=== PATIENT | male | born 1945 | race African-American/Black ===

== ENCOUNTER 2020-06-26 16:40 | Inpatient (IN) | payer MEDICARE ==
--- NOTE | 2020-06-26 19:50 | RAD ---
CHEST TWO VIEW: 06/26/20 HISTORY: Cough. COMPARISON: None. FINDINGS: Abnormal consolidative process in the right middle lobe and right lower lobe. Background lung hyperi nflation. No pneumothorax. Heart size is mildly enlarged. IMPRESSION: Right middle lobe and right lower lobe air space consolidation. This may reflect pneumonia although g iven likely comparisons, follow-up radiograph after treatment are recommended. POS: [facility]
[2020-06-26] MEDS ORDERED: Cefepime 2 GM VIAL ONE (20:54)
[2020-06-26] MEDS ORDERED: Vancomycin 1.5 GRAM/300 ML BAG 1.5 GM in Premix Bag 1 BAG IVPB SCH (21:00)
[2020-06-26] MEDS ORDERED: Albuterol 200 PUFF (6.7GM INHALER) ONE (21:17)
[2020-06-26 22:33] LABS: #Basophils 0.1 thou/uL (0.0-0.2); #Eosinphils 0.1 thou/uL (0.0-0.7); #Lymphocytes 1.1 thou/uL (1.20-3.40); #Monocytes 1.1 thou/uL (0.11-0.59); #Neutrophils 5.7 thou/uL (1.40-6.50); %Basophils 0.7 % (0.0-1.0); %Eosinophils 1.8 % (0.0-10.0); %Lymphocytes 13.4 % (21.0-51.0); Hemoglobin 10.7 g/dL (14.0-18.0); Mean Corpuscular HGB CONC 32.9 g/dL (32.0-36.0); Mean Corpuscular Hemoglobin 30.5 pg (27.0-31.0); Mean Corpuscular Volume 92.6 fL (78.0-98.0); Platelet Count 139 thou/uL (130-400); RBC Distribution Width 15.4 % (11.5-14.5); Red Blood Cell (RBC) Count 3.51 mill/uL (4.70-6.10); White Blood Cell (WBC) Count 8.1 thou/uL (4.8-10.8)
[2020-06-26 23:15] LABS: ALT (SGPT) 9 U/L (8-55); AST (SGOT) 16 U/L (5-34); Albumin 3.8 g/dL (3.4-4.8); Alkaline Phosphatase 69 U/L (40-110); Anion Gap 22 mmol/L (10-20); BUN (Urea Nitrogen) 41 mg/dL (8.4-25.7); Bilirubin, Total 0.9 mg/dL (0.2-1.2); Calc. Creatinine Clearance 0 mL/min (70-130); Carbon Dioxide 27 mmol/L (23-31); Chloride 95 mmol/L (98-107); Globulin 2.9 g/dL (2.4-3.5); Glucose 81 mg/dL (83-110); Potassium 4.3 mmol/L (3.5-5.1); Protein, Total 6.7 g/dL (5.8-8.1); Sodium 140 mmol/L (136-145)
[2020-06-26 23:38] LABS: CKMB 1.4 ng/mL (0-6.6)
[2020-06-26 23:47] LABS: SARS-CoV-2 NAA Rapid Test Not Detected (NotDetected)
[2020-06-27] MEDS ORDERED: Calcium Carbonate 500 MG ChewTAB PO PRN (00:42)
[2020-06-27] MEDS ORDERED: Senokot S 8.6-50 MG TAB PO PRN (00:42)
[2020-06-27] MEDS ORDERED: Ondansetron ODT 4 MG TAB PO PRN (00:42)
[2020-06-27] MEDS ORDERED: Ondansetron PF 4 MG/2 ML Vial IVP PRN (00:42)
[2020-06-27] MEDS ORDERED: Acetaminophen 325 MG TAB PO PRN (00:42)
--- NOTE | 2020-06-27 00:42 | PDOC.FPRHP ---
- History of Present Illness Chief Complaint: SOB History of Present Illness: Pt is a 75 yo M with a PMH of ESRD on dialysis T//Wed, diabetes, HTN, COPD, GERD, [place] who presents with SOB for the last week. Patient endorses associated congestion, wheezing, cough that is productive of increased white to green sputum. Denies fever. Is not prescribed home O2 but uses a family member's O2 at home on 2L. Denies any sick contacts. Endorses compliance with medications. Denies FRANCO, CP, vision changes, fever, chills, abdominal pain, nausea, vomiting. ED Course: Vanc, Cefepime, Proventil, Duoneb - Allergies/Adverse Reactions Allergies Allergy/AdvReac Type Severity Reaction Status Date / Time codeine Allergy Verified 06/27/20 06:21 - Home Medications Medication Instructions Recorded Confirmed Type Aspirin 325 mg PO DAILY 06/27/20 06/27/20 History Budesonide/Formoterol Fumarate 10.2 gm IH BID 06/27/20 06/27/20 History [Budesonide-Formoterol 160-4.5] Carvedilol 25 mg PO BID 06/27/20 06/27/20 History Cetirizine HCl [Zyrtec] 10 mg PO DAILY 06/27/20 06/27/20 History Famotidine [Acid Controller] 20 mg PO DAILY 06/27/20 06/27/20 History Mometasone/Formoterol 100/5 2 puff INH BID-RT 06/27/20 06/27/20 History [Dulera 100 Mcg/5 Mcg Inhaler] hydrALAZINE HCl [Hydralazine HCl] 50 mg PO BID 06/27/20 06/27/20 History - History PMHx: ESRD on dialysis T//Wed, diabetes, HTN, COPD, GERD, [place] PSHx: dialysis fistula placement FHx: non contributory Social: 60 year pack year history smoking, marijuana as a teen, no alcohol - Review of Systems General: reports: fatigue. denies: fever/chills Eyes: reports: vision changes Respiratory: reports: cough, congestion, shortness of breath, exercise intolerance Cardiovascular: denies: chest pain, palpitation, edema Gastrointestinal: denies: nausea, vomiting, diarrhea, abdominal pain Genitourinary: denies: incontinence Skin: denies: rashes Neurological: denies: seizure - Vital signs BP: 204/85 HR: 96 RR: 22 Tmax: 99 Pox: 86% on RA, 98% on 3L Wt: 82kg - Physical Exam Constitutional: NAD, awake, alert and oriented -Constitutional: on nasal cannula HEENT: normocephalic and atraumatic, EOMI, grossly normal vision, grossly normal hearing Neck: no JVD Heart: RRR, normal S1/S2, pulses present, no edema -Lungs: wheezing appreciated on exam bilaterally in all lung gonzales Abdomen: soft, non-tender, bowel sounds present Musculoskeletal: normal structure, normal tone, ROM grossly normal Neurological: no focal deficit, CN II-XII intact Skin: no rash/lesions Psychiatric: normal mood and affect, good judgment and insight, intact recent and remote memory FMR H&P: Results - Labs Result Diagrams: 06/27/20 04:37 06/27/20 04:30 Lab results: WBC 8.1 thou/uL (4.8-10.8) 06/26/20 21:30 Hgb 10.7 g/dL (14.0-18.0) L 06/26/20 21:30 Hct 32.5 % (42.0-52.0) L 06/26/20 21:30 MCV 92.6 fL (78.0-98.0) 06/26/20 21:30 Plt Count 139 thou/uL (130-400) 06/26/20 21:30 Neutrophils % 71.0 % (42.0-75.0) 06/26/20 21:30 Sodium 140 mmol/L (136-145) 06/26/20 21:30 Potassium 4.3 mmol/L (3.5-5.1) 06/26/20 21:30 Chloride 95 mmol/L (98-107) L 06/26/20 21:30 Carbon Dioxide 27 mmol/L (23-31) 06/26/20 21:30 BUN 41 mg/dL (8.4-25.7) H 06/26/20 21:30 Creatinine 10.80 mg/dL (0.7-1.3) H 06/26/20 21:30 Glucose 81 mg/dL (83-110) L 06/26/20 21:30 Calcium 9.0 mg/dL (7.8-10.44) 06/26/20 21:30 Total Bilirubin 0.9 mg/dL (0.2-1.2) 06/26/20 21:30 AST 16 U/L (5-34) 06/26/20 21:30 ALT 9 U/L (8-55) 06/26/20 21:30 Alkaline Phosphatase 69 U/L (40-110) 06/26/20 21:30 CK-MB (CK-2) 1.4 ng/mL (0-6.6) 06/26/20 21:30 B-Natriuretic Peptide 2538.1 pg/mL (0-100) H 06/26/20 21:30 Serum Total Protein 6.7 g/dL (5.8-8.1) 06/26/20 21: Albumin 3.8 g/dL (3.4-4.8) 06/26/20 21:30 FMR H&P: A/P - Plan Acute hypoxic respiratory failure 2/2 PNA and COPD exacerbation -history of COPD, SOB with increased oxygen requirement, increased cough with sputum production -CXR: right middle and lower lobe consolidation -s/p antibiotics in ED, continue Rocephin and Azithromycin -on 3L of O2, will put in for CM consult as patient will likely need home O2 since he has been using a family member's -prednisone 40mg daily for 5 days (06/27) -DuoNebs PRN and ADRIEN -COVID negative Hypertensive urgency -continue home meds -Hydralazine on PRN Elevated Trop -Trop .122>.138 -denies CP -continue to trend Elevated BNP -BNP 2538 on admission -no signs of fluid overload on exam -continue to monitor ESRD on dialysis T//Wed -Dr. Sousa is patient's regular lidar scientist -Neprhology consulted to continue normal dialylsis schedule Diabetes -aware not on home meds -SSI -ACCU checks HTN -aware, see plan for hypertensive urgency GERD -aware, continue home meds [place]FR[place] -aware, ordered CPAP at night Anemia -likely 2/2 renal failure Dispo: admit to tele inpatient Fluids: KVO Diet: HH incl low sodium DVT ppx: Heparin GI Ppx: home pantoprazole PCP: GEM FMR H&P: Upper Level - Plan Date/Time: 06/27/20 0042 Pete Logan PGY3, have evaluated this patient and agree with findings/plan as outlined by internal combustion engineer resident. Pertinent changes/additions are listed here. 75-year-old male with past medical history of end-stage renal disease on hemodialysis Wednesday. Presents to the ER with several days of shortness of breath, denies fevers chills chest pain or palpitations. He has notable history of COPD. He denies any transforming factors. On exam patient is hypertensive 204/85, tachypneic 22 breaths/min, hypoxic on room air but satting 98% on 3 L. Heart has regular rate and rhythm with no murmurs, lungs have bilateral expiratory wheezing but moderately good air movement, the patient does not appear to be in any distress and is able to finish sentences without taking a breath. No JVD no lower extremity edema. A/P Hypoxic respiratory failure secondary to community-acquired pneumonia and COPD exacerbation Chest x-ray reveals right middle and lower lobe consolidation, examination significant for wheezing. I am mindful of BNP of 2538 however he is euvolemic on exam. We will treat with azithromycin and Rocephin for the pneumonia, follow-up blood cultures. Treat with prednisone x5 days and duo nebs for COPD exacerbation. End-stage renal disease- Dr. Sousa consult order put in from emergency room. He is due for dialysis tomorrow Diabetes mellitus Sliding scale insulin, Accu-Cheks, home medications HTN, GERD, [place], Spinal stenosis stable, continue home meds CODE: FULL dispo: inpatient, expect more than 2 midnights Addendum - Attending - Attending Attestation Date/Time: 06/27/20 1051 I personally evaluated the patient and discussed the management with Dr. Waters/Erasmo. I agree with the History, Examination, Assessment and Plan documented above with any addition or exceptions noted below. Patient here with productive cough, worsening respiratory complaints and new diagnosis of hypoxia, though he reports being on O2 for years unofficially. CXR concerning for pneumonia, labs reassuring. Suspect mostly COPD exacerbation. Continue IV abx, neb treatments, O2 support, steroids. Further mgmt pending clin ical course.
[2020-06-27] MEDS ORDERED: Dextrose 50% Abboject 50 ML SYRINGE SLOW IVP PRN (01:27)
[2020-06-27] MEDS ORDERED: HumaLOG 300 UNITS/3 ML VIAL SC PRN (01:27)
[2020-06-27] MEDS ORDERED: Dextrose 5% in Water 1,000 ML IV PRN (01:27)
[2020-06-27] MEDS ORDERED: Azithromycin 500 MG in Sodium Chloride 0.9% 250 ML 250 ML IVPB SCH ×2 (02:00→09:00)
[2020-06-27] MEDS ORDERED: cefTRIAXone\\ROCEPHIN 1 GM VIAL ONE (02:11)
[2020-06-27] MEDS: cefTRIAXone\\ROCEPHIN 1 GM in Sodium Chloride 0.9% 100 ML IVPB SCH (03:12)
[2020-06-27 03:28] LABS: Troponin I 0.138 ng/mL (< 0.028)
[2020-06-27] MEDS ORDERED: hydrALAZINE 20 MG/ML VIAL ONE (05:23)
[2020-06-27] MEDS: hydrALAZINE 20 MG/ML VIAL SLOW IVP PRN ×2 (05:31→16:24)
[2020-06-27 05:33] LABS: Troponin I 0.151 ng/mL (< 0.028)
[2020-06-27 07:37] LABS: ALT (SGPT) 7 U/L (8-55); AST (SGOT) 12 U/L (5-34); Albumin 3.7 g/dL (3.4-4.8); Alkaline Phosphatase 70 U/L (40-110); Anion Gap 24 mmol/L (10-20); BUN (Urea Nitrogen) 44 mg/dL (8.4-25.7); Bilirubin, Total 0.8 mg/dL (0.2-1.2); Calc. Creatinine Clearance 6 mL/min (70-130); Calcium 9.2 mg/dL (7.8-10.44); Carbon Dioxide 24 mmol/L (23-31); Chloride 95 mmol/L (98-107); Globulin 3.2 g/dL (2.4-3.5); Glucose 71 mg/dL (83-110); Potassium 4.1 mmol/L (3.5-5.1); Protein, Total 6.9 g/dL (5.8-8.1); Sodium 139 mmol/L (136-145)
[2020-06-27 07:49] LABS: #Eosinphils 0.1 thou/uL (0.0-0.7); #Monocytes 1.2 thou/uL (0.11-0.59); %Basophils 0.2 % (0.0-1.0); %Lymphocytes 10.6 % (21.0-51.0); %Neutrophils 75.3 % (42.0-75.0); Hemoglobin 11.3 g/dL (14.0-18.0); Mean Corpuscular HGB CONC 31.3 g/dL (32.0-36.0); Mean Corpuscular Volume 92.8 fL (78.0-98.0); Mean Platelet Volume 10.5 fL (7.4-10.4); Platelet Count 136 thou/uL (130-400); RBC Distribution Width 15.4 % (11.5-14.5); Red Blood Cell (RBC) Count 3.89 mill/uL (4.70-6.10); White Blood Cell (WBC) Count 9.3 thou/uL (4.8-10.8)
[2020-06-27] MEDS ORDERED: Albuterol Sulfate 2.5 mg/3 ml Neb NEB PRN (08:44)
[2020-06-27] MEDS: predniSONE 20 MG TAB PO SCH (08:46)
[2020-06-27] MEDS: Carvedilol 25 MG TAB PO SCH ×2 (08:46→22:41)
[2020-06-27] MEDS: Aspirin 325 MG TAB PO SCH (08:46)
[2020-06-27] MEDS: Loratadine 10 MG TAB PO SCH (08:46)
[2020-06-27] MEDS: Famotidine 20 MG TAB PO SCH (08:46)
[2020-06-27] MEDS: Heparin 5,000 UNITS/ML VIAL SC SCH ×3 (08:46→22:42)
[2020-06-27] MEDS: hydrALAZINE 25 MG TAB PO SCH ×2 (08:46→22:42)
[2020-06-27 09:35] LABS: HBSAg Index 0.23 S/CO (0-0.99); Hep B Surf Ag Non-Reactive S/CO (NonReactive)
[2020-06-27] MEDS: HumaLOG 300 UNITS/3 ML VIAL SC PRN (11:12)
--- NOTE | 2020-06-27 12:22 | CON ---
DATE OF CONSULTATION: 06/27/2020 CONSULTING PHYSICIAN: REASON FOR CONSULTATION: End-stage renal disease evaluation and care. REASON FOR ADMISSION: Shortness of breath. HISTORY OF PRESENT ILLNESS: This is a 75-year-old male with history of end-stage renal disease, on hemodialysis TTS, diabetes, hypertension, COPD, who came to the hospital with shortness of breath, was found to have pneumonia and to be evaluated. The patient gets dialysis on Wednesday, , and Wednesday and due for dialysis today. Nephrology consulted. The patient was treated with Zithromax as outpatient, but his oxygen level dropped and started having more short of breath. He was also having white to green sputum. PAST MEDICAL HISTORY: Positive for end-stage renal disease, type 2 diabetes, hypertension, COPD, obstructive sleep apnea. PAST SURGICAL HISTORY: Dialysis fistula placement. HOME MEDICATIONS: Reviewed. ALLERGIES: TO CODEINE. SOCIAL HISTORY: History of smoking and marijuana use. No alcohol use. FAMILY HISTORY: No history of kidney disease. REVIEW OF SYSTEMS: CONSTITUTIONAL: Negative for weight loss or gain, ability to conduct usual activities. SKIN: Negative for rash, itching. EYES: Negative for double vision, pain. ENT/MOUTH: Negative for nose bleeding, neck stiffness, pain, tenderness. CARDIOVASCULAR: Negative for palpitations, dyspnea on exertion, orthopnea. RESPIRATORY: Negative for shortness of breath, wheezing, cough, hemoptysis, fever or night sweats. GASTROINTESTINAL: Negative for poor appetite, abdominal pain, heartburn, nausea, vomiting, constipation, or diarrhea. GENITOURINARY: Negative for urgency, frequency, dysuria, nocturia. MUSCULOSKELETAL: Negative for pain, swelling. NEUROLOGIC/PSYCHIATRIC: Negative for anxiety, depression. ALLERGY/IMMUNOLOGIC: Negative for skin rash, bleeding tendency. PHYSICAL EXAMINATION: GENERAL: Reveals a well-built male, in no apparent distress. VITAL SIGNS: Temperature 98.1, pulse 88, respiratory rate 16, and blood pressure 160/73. HEENT: Atraumatic, normocephalic. Oral mucosa moist. NECK: Supple. CV: S1 and S2. Rate and rhythm are regular. RESPIRATORY: Clear. GASTROINTESTINAL: Abdomen is soft. MUSCULOSKELETAL: No tenderness. No edema. DERMATOLOGIC: No skin rash. NEUROLOGIC: Alert and awake. PSYCHIATRIC: Mood and affect normal. LABORATORY DATA: Hemoglobin is 10.7. Potassium 4.1, BUN is 44, and creatinine is 7.3. ASSESSMENT AND PLAN: 1. End-stage renal disease. Plan to have dialysis today. 2. Edema. 3. Hypertension. 4. Anemia of chronic disease. We will have dialysis and titrate blood pressure medicines. Remove fluid dialysis as tolerated. Continue antibiotics for pneumonia. We will follow. Thank you for the consult. Job ID: [id number]
[2020-06-27] MEDS ORDERED: Labetalol HCl 100 MG/20 ML VIAL SLOW IVP PRN (18:00)
[2020-06-28] MEDS: hydrALAZINE 25 MG TAB PO SCH ×3 (00:59→20:54)
[2020-06-28] MEDS: Carvedilol 25 MG TAB PO SCH ×3 (00:59→20:54)
[2020-06-28] MEDS: Heparin 5,000 UNITS/ML VIAL SC SCH ×4 (01:00→21:10)
[2020-06-28] MEDS ORDERED: Ziprasidone 20 MG VIAL IM ONE (01:30)
--- NOTE | 2020-06-28 01:30 | PDOC.BPN ---
- Brief Progress Note Called to bedside by nurse with Dr. Zimmerman for increasing agitation and delirium. Patient refusing all meds and ACCU checks. Ripped out his IV access. He thinks he is in detention. Trying to get out of bed, bed alarm going off upon arrival to patient's room. On questioning, he is feeling well, much better than admission. A&Ox3, but starts to hallucinate. Satting 99% on RA. NAD. His SBP is 230. Put in order for Farhana and asked nurse to re-establish IV access to give BP meds. Will re evaluate after administration of Geodon.
[2020-06-28] MEDS ORDERED: Ziprasidone 20 MG VIAL IM PRN (03:49)
[2020-06-28] MEDS ORDERED: Sterile Water 10 ML VIAL FS PRN (04:00)
[2020-06-28] MEDS: cefTRIAXone\\ROCEPHIN 1 GM in Sodium Chloride 0.9% 100 ML IVPB SCH (05:35)
--- NOTE | 2020-06-28 06:08 | PDOC.FM ---
- Subjective Subjective: Overnight team got a call that patient was agitated and delirious, pulled out IV and thought he was in fpc, at bedside patient was AxO x 3 with periods of hallucinations, SBP 230, O2 sat 99 on RA. Given juan miguel with instructions for the nurse to reestablish IV access and give patient his bp meds. When I saw patient, he was resting comfortably in bed. Denied any pain, trouble breathing, abdominal pain. When asked where he was, he said that he was at the [facility] pit. - Objective MAR Reviewed: Yes Vital Signs & Weight: Vital Signs (12 hours) Temp Pulse Resp BP Pulse Ox 06/28/20 00:59 86 06/27/20 21:37 94 L 06/27/20 19:28 98.0 F 86 16 171/76 H 94 L Weight Weight 78.109 kg I&O: 06/26/20 06/27/20 06/28/20 06:59 06:59 06:59 Intake Total 600 Output Total 3100 Balance -2500 Result Diagrams: 06/27/20 04:37 06/27/20 04:30 Phys Exam - Physical Examination Oriented to name only HEENT: PERRLA, moist MMs expiratory wheezing throughout Cardiovascular: RRR, no significant murmur Gastrointestinal: soft, non-tender, positive bowel sounds Musculoskeletal: no edema Neurological: moves all 4 limbs Skin: no rash Dx/Plan - Plan Plan: Acute hypoxic respiratory failure 2/2 PNA and COPD exacerbation -history of COPD, SOB with increased oxygen requirement, increased cough with sputum production -CXR: right middle and lower lobe consolidation -s/p antibiotics in ED, continue Rocephin and Azithromycin -pending procal, yesterday 0.78 -94 on RA -prednisone 40mg daily for 5 days (06/27) -DuoNebs flores, albuterol prn -COVID negative Hypertensive urgency -continue home meds -Hydralazine and labetalol prn -Nephrology - Dr. Sousa consulted, plans on titrating bp meds, appreciate recs Elevated Trop -Trop .122>.138>.151>.140 -denies CP -continue to monitor on tele Elevated BNP -BNP 2538 on admission -no signs of fluid overload on exam -continue to monitor, fluid restriction ESRD on dialysis T//Sat -Dr. Sousa is patient's regular vehicle upholsterer -Neprhology consulted - Dr. Sousa, dialysis 06/27, appreciate recs Diabetes -aware not on home meds -SSI -ACCU checks HTN -aware, see plan for hypertensive urgency GERD -aware, continue home meds [place] -aware, ordered CPAP at night Anemia -likely 2/2 renal failure Dispo: admit to tele inpatient Fluids: KVO Diet: HH incl low sodium DVT ppx: Heparin GI Ppx: home pantoprazole PCP: [facility]EM Addendum - Attending - Attending Attestation Date/Time: 06/28/20 3520 I personally evaluated the patient and discussed the management with Dr. Cabezas. I agree with the History, Examination, Assessment and Plan documented above with any addition or exceptions noted below. Patient stable. Not requiring O2. He had issues with delirium overnight, will attempt reorientation and sync of sleep/wake cycle today. Continue treatment for his primarily COPD exacerbation.
[2020-06-28 06:41] VITALS: BMI 24.7
[2020-06-28] MEDS ORDERED: Lorazepam 0.5 MG TAB PO SCH (07:00)
[2020-06-28] MEDS: Loratadine 10 MG TAB PO SCH (09:04)
[2020-06-28] MEDS: Famotidine 20 MG TAB PO SCH (09:04)
[2020-06-28] MEDS: Azithromycin 250 MG TAB PO SCH (09:05)
[2020-06-28] MEDS: Aspirin 325 MG TAB PO SCH (09:05)
[2020-06-28] MEDS: predniSONE 20 MG TAB PO SCH (09:05)
[2020-06-28] MEDS ORDERED: Amlodipine 10 MG TAB PO SCH (13:00)
[2020-06-28] MEDS: HumaLOG 300 UNITS/3 ML VIAL SC PRN (17:34)
--- NOTE | 2020-06-28 18:05 | PRG ---
DATE OF SERVICE: 06/28/2020 SUBJECTIVE: Patient was seen and examined at bedside and overnight events noted. Patient denies any shortness of breath or chest pain or palpitation. No history of nausea or vomiting or diarrhea or fever or chills or cramps. OBJECTIVE: GENERAL: This is well-built male, in no apparent distress. VITAL SIGNS: Temperature 96.7. Heart Rate 64. Respiratory rate 18. Blood pressure 194/81. HEENT: Atraumatic, normocephalic. Oral mucosa is moist. NECK: Supple. CARDIOVASCULAR: S1, S2 heard. Rate and rhythm regular. RESPIRATORY: Clear to auscultation. GASTROINTESTINAL: Abdomen is soft. MUSCULOSKELETAL: No tenderness. No edema. DERMATOLOGIC: No skin rash. NEUROLOGIC: Alert and awake and oriented x3. No focal neurologic deficits. Moving all the extremities. PSYCHIATRIC: Mood and affect normal. LABORATORY DATA: Not done today. ASSESSMENT AND PLAN: 1. End-stage renal disease. Continue dialysis Wednesday, , and Wednesday as tolerated. 2. Edema, we will remove fluid. 3. Hypertension. 4. Anemia of chronic disease. Continue on dialysis Wednesday, , and Wednesday as tolerated. Job ID: [id number]
[2020-06-28 18:21] LABS: #Lymphocytes 0.7 thou/uL (1.20-3.40); #Monocytes 0.2 thou/uL (0.11-0.59); #Neutrophils 7.5 thou/uL (1.40-6.50); %Basophils 0.2 % (0.0-1.0); %Eosinophils 0.1 % (0.0-10.0); %Lymphocytes 8.2 % (21.0-51.0); %Monocytes 2.2 % (0.0-10.0); %Neutrophils 89.2 % (42.0-75.0); Hemoglobin 11.1 g/dL (14.0-18.0); Mean Corpuscular HGB CONC 31.4 g/dL (32.0-36.0); Mean Corpuscular Hemoglobin 29.4 pg (27.0-31.0); Mean Corpuscular Volume 93.5 fL (78.0-98.0); Mean Platelet Volume 10.3 fL (7.4-10.4); Platelet Count 151 thou/uL (130-400); RBC Distribution Width 15.2 % (11.5-14.5); Red Blood Cell (RBC) Count 3.78 mill/uL (4.70-6.10); White Blood Cell (WBC) Count 8.4 thou/uL (4.8-10.8)
[2020-06-28 18:37] LABS: ALT (SGPT) 11 U/L (8-55); AST (SGOT) 14 U/L (5-34); Albumin 3.8 g/dL (3.4-4.8); Alkaline Phosphatase 76 U/L (40-110); Anion Gap 19 mmol/L (10-20); BUN (Urea Nitrogen) 41 mg/dL (8.4-25.7); Bilirubin, Total 0.6 mg/dL (0.2-1.2); Calc. Creatinine Clearance 8 mL/min (70-130); Calcium 10.1 mg/dL (7.8-10.44); Carbon Dioxide 29 mmol/L (23-31); Chloride 96 mmol/L (98-107); Globulin 3.3 g/dL (2.4-3.5); Glucose 202 mg/dL (83-110); Potassium 4.4 mmol/L (3.5-5.1); Protein, Total 7.1 g/dL (5.8-8.1); Sodium 140 mmol/L (136-145)
[2020-06-29] MEDS: cefTRIAXone\\ROCEPHIN 1 GM in Sodium Chloride 0.9% 100 ML IVPB SCH (00:16)
[2020-06-29] MEDS: hydrALAZINE 20 MG/ML VIAL SLOW IVP PRN (00:16)
[2020-06-29] MEDS: hydrOXYzine 25 MG/ML VIAL IM PRN ×2 (03:08→10:27)
[2020-06-29 05:11] LABS: #Lymphocytes 1.1 thou/uL (1.20-3.40); #Neutrophils 9.3 thou/uL (1.40-6.50); %Eosinophils 0.2 % (0.0-10.0); %Lymphocytes 9.6 % (21.0-51.0); %Monocytes 8.8 % (0.0-10.0); %Neutrophils 81.4 % (42.0-75.0); Mean Corpuscular HGB CONC 31.1 g/dL (32.0-36.0); Mean Corpuscular Volume 93.3 fL (78.0-98.0); Mean Platelet Volume 10.4 fL (7.4-10.4); Platelet Count 174 thou/uL (130-400); RBC Distribution Width 15.3 % (11.5-14.5); Red Blood Cell (RBC) Count 3.79 mill/uL (4.70-6.10); White Blood Cell (WBC) Count 11.4 thou/uL (4.8-10.8)
--- NOTE | 2020-06-29 05:15 | PDOC.FM ---
- Subjective Subjective: Pt resting comfortably in bed this AM with sitter at bed side. Night team was called overnight with c/o agitation and pt was given atarax for this with relief of the agitation. Pt not responding to many questions this AM but states that he is "good" this AM. According to sitter, patient did not sleep most of the night. - Objective Vital Signs & Weight: Vital Signs (12 hours) Temp Pulse Resp BP BP BP BP 06/29/20 04:00 97.8 F 79 16 06/29/20 03:11 168/74 H 06/29/20 00:16 71 212/87 H 06/28/20 23:44 98.0 F 65 16 189/64 H 06/28/20 20:54 71 206/91 H 06/28/20 20:50 201/82 H 06/28/20 20:40 06/28/20 19:47 97.6 F 71 16 206/91 H 06/28/20 19:00 06/28/20 18:58 06/28/20 17:32 64 182/90 H Pulse Ox 06/29/20 04:00 96 06/29/20 03:11 06/29/20 00:16 06/28/20 23:44 95 06/28/20 20:54 06/28/20 20:50 06/28/20 20:40 96 06/28/20 19:47 96 06/28/20 19:00 93 L 06/28/20 18:58 93 L 06/28/20 17:32 Weight Weight 76 kg I&O: 06/27/20 06/28/20 06/29/20 06:59 06:59 06:59 Intake Total 600 Output Total 3100 Balance -2500 Result Diagrams: 06/29/20 04:31 06/29/20 04:31 Phys Exam - Physical Examination Constitutional: NAD HEENT: PERRLA Neck: supple Respiratory: no wheezing, no rales, no rhonchi, clear to auscultation bilateral Cardiovascular: RRR, no significant murmur, no rub Gastrointestinal: soft, non-tender, no distention, positive bowel sounds Musculoskeletal: pulses present Neurological: moves all 4 limbs Deviation from normal: unable to answer questions about his full name, , current location/city Skin: normal turgor Dx/Plan - Plan Plan: Acute hypoxic respiratory failure 2 PNA and COPD exacerbation -prednisone 40mg daily for 5 days started (06/27) -Azar flores, albuterol prn -COVID negative -Changed rocephin to levaquin Hypertensive urgency with current dx of essential hypertension -continue home meds -Hydralazine and amlodipine FLORES -labetalol and hydralyzine prn -home med carvedilol -Nephrology - Dr. Sousa consulted, plans on titrating bp meds, appreciate recs Elevated Trop -Trop .122>.138>.151>.140 -denies CP -continue to monitor on tele Elevated BNP -BNP 2538 on admission -no signs of fluid overload on exam -continue to monitor, fluid restriction ESRD on dialysis /Wed -Dr. Sousa is patient's regular patient representative -Neprhology consulted - Dr. Sousa, dialysis 06/27, appreciate recs, dialysis pending today (Wednesday) Diabetes -aware not on home meds -SSI -ACCU checks GERD -aware, continue home meds [place] -aware, ordered CPAP at night Anemia of Chronic Disease -likely 2/2 renal failure Fluids: KVO Diet: HH incl low sodium DVT ppx: Heparin GI Ppx: home pantoprazole PCP: GEM Dispo: BPs still elevated. Will receive dialysis today. With hope that BP will range 150-160 systolic after dialysis. Changed Rocephin to Levaquin. If BPs improve today will discharge home. Addendum - Attending - Attending Attestation Date/Time: 06/29/20 0553 I personally evaluated the patient and discussed the management with Dr. Barba. I agree with the History, Examination, Assessment and Plan documented above with any addition or exceptions noted below. Patient reports feeling improved this morning. He had a rough night, having delirium both nights. Suspect being out of his familiar environment, lack of re- orientation, and steroids are contributing. Respiratory function stable, not requiring O2. HD today, and if blood pressures remain overall in the current range (150-160 SBP), suspect he can be discharged home to complete course of abx.
[2020-06-29 05:37] LABS: ALT (SGPT) 13 U/L (8-55); AST (SGOT) 18 U/L (5-34); Albumin 3.7 g/dL (3.4-4.8); Alkaline Phosphatase 84 U/L (40-110); Anion Gap 23 mmol/L (10-20); BUN (Urea Nitrogen) 50 mg/dL (8.4-25.7); Bilirubin, Total 0.6 mg/dL (0.2-1.2); Calc. Creatinine Clearance 7 mL/min (70-130); Calcium 10.1 mg/dL (7.8-10.44); Carbon Dioxide 23 mmol/L (23-31); Chloride 97 mmol/L (98-107); Globulin 3.5 g/dL (2.4-3.5); Glucose 138 mg/dL (83-110); Potassium 4.4 mmol/L (3.5-5.1); Protein, Total 7.2 g/dL (5.8-8.1); Sodium 139 mmol/L (136-145)
[2020-06-29] MEDS: HumaLOG 300 UNITS/3 ML VIAL SC PRN (07:00)
[2020-06-29 07:49] VITALS: TEMP 97.6
[2020-06-29] MEDS ORDERED: Amlodipine 10 MG TAB PO SCH (09:00)
[2020-06-29] MEDS: Heparin 5,000 UNITS/ML VIAL SC SCH ×2 (12:37→16:18)
[2020-06-29] MEDS: Loratadine 10 MG TAB PO SCH (12:38)
[2020-06-29] MEDS: Aspirin 325 MG TAB PO SCH (12:38)
[2020-06-29] MEDS: Carvedilol 25 MG TAB PO SCH (12:38)
[2020-06-29] MEDS: Famotidine 20 MG TAB PO SCH (12:38)
[2020-06-29] MEDS: Azithromycin 250 MG TAB PO SCH (12:38)
[2020-06-29] MEDS: predniSONE 20 MG TAB PO SCH (12:38)
[2020-06-29] MEDS: hydrALAZINE 25 MG TAB PO SCH (12:41)
[2020-06-29] MEDS ORDERED: hydrALAZINE 25 MG TAB PO SCH ×4 (15:00→21:00)
[2020-06-29 16:24] VITALS: BP 142/58
--- NOTE | 2020-06-29 17:09 | PRG ---
DATE OF SERVICE: 06/29/2020 SUBJECTIVE: Patient was seen and examined at bedside and overnight events noted. Patient denies any shortness of breath or chest pain or palpitation. No history of nausea or vomiting or diarrhea or fever or chills or cramps. OBJECTIVE: GENERAL: This is a well-built male, in no apparent distress. VITAL SIGNS: Temperature 97.6. Heart rate 82. Respiratory rate 18. Blood pressure 182/67. HEENT: Atraumatic, normocephalic. Oral mucosa is moist. NECK: Supple. CARDIOVASCULAR: S1, S2 heard. Rate and rhythm regular. RESPIRATORY: Clear to auscultation. GASTROINTESTINAL: Abdomen is soft. MUSCULOSKELETAL: No tenderness. No edema. DERMATOLOGIC: No skin rash. NEUROLOGIC: Alert and awake and oriented x3. No focal neurologic deficits. Moving all the extremities. PSYCHIATRIC: Mood and affect normal. LABORATORY DATA: Potassium 4.4, BUN is 50, and creatinine is 9.3. ASSESSMENT AND PLAN: 1. End-stage renal disease. Continue dialysis TTS as tolerated. The patient is seen during dialysis. 2. Edema. 3. Hypertension. 4. Anemia of chronic disease. 5. Altered mentation. 6. History of waxing and waning. Family reports possible early dementia. We will follow. Job ID: [id number]
--- NOTE | 2020-07-02 02:14 | DIS ---
DATE OF ADMISSION: 06/26/2020 DATE OF DISCHARGE: 06/29/2020 ADMITTING ATTENDING: Cassius Barron MD DISCHARGE ATTENDING: Cassius Barron MD RESIDENT: Camryn Barba DO CONSULTS: Dr. Rosemary Sousa, Nephrology. PROCEDURES: Chest x-ray done on 06/26/2020 showed right middle lobe and right lower lobe airspace consolidation, may reflect pneumonia although likely given comparisons. Followup radiographs after treatment are recommended. PRIMARY DIAGNOSES: Acute hypoxic respiratory failure secondary to chronic obstructive pulmonary disease exacerbation, hypertensive urgency, elevated troponin, and elevated BNP. SECONDARY DIAGNOSES: End-stage renal disease, on dialysis; diabetes; hypertension; gastroesophageal reflux disease; obstructive sleep apnea; and anemia. DISCHARGE MEDICATIONS: 1. Aspirin 325 mg p.o. daily. 2. Dulera two puffs b.i.d. 3. Hydralazine 50 mg p.o. b.i.d. 4. Zyrtec 10 mg p.o. daily. 5. Famotidine 20 mg p.o. daily. 6. Carvedilol 25 mg p.o. b.i.d. 7. Colace 100 mg p.o. daily. 8. Norvasc 10 mg p.o. daily. 9. Ferric citrate two tabs p.o. t.i.d. 10. Prednisone 40 mg p.o. daily for three days. 11. Levaquin 500 mg p.o. q.48 hours for three days after dialysis. DISCONTINUED MEDICATIONS: None. HISTORY OF PRESENT ILLNESS/HOSPITAL COURSE: This is a 75-year-old male with a past medical history as above, who presented with shortness of breath for the last week. The patient endorsed associated congestion, wheezing, cough that was productive in nature. He denied fever. The patient reportedly had been using home oxygen that was a family member's oxygen on 2 L. He denied any sick contacts. He endorsed compliance with medications. Denied headache, chest pain, vision changes, chills, abdominal pain, nausea, or vomiting. The patient was found to be acutely hypoxic. Given his history of COPD, he was treated as a COPD exacerbation initially with antibiotics and continued steroids. The patient was also found to have blood pressures elevated above systolic 180. He was continued on home medications and hydralazine p.r.n. was on board. The patient was found to have elevated troponins, which was due to being demand ischemia in nature. The patient's BNP was also found to be elevated; however, he had no signs of fluid overload. The patient's Nephrology, Dr. Sousa was consulted and the patient was continued on his dialysis regimen. Dr. Sousa titrated some of the patient's blood pressure medications and suggested continuing antibiotics for pneumonia coverage. The patient was initially on Rocephin, however, this was changed to renally dosed Levaquin and it was decided that the patient should have three more doses after his day of discharge q.48 hours after dialysis. The patient's blood pressures stabled out after dialysis on the day of discharge and he was deemed fit for going home. DISPOSITION: Stable. DISCHARGE INSTRUCTIONS: 1. Location: Home. 2. Diet: Renal diet. 3. Activity: As tolerated. 4. Followup: Within 7 days with primary care provider at [facility] and [facility]. Job ID: [id number]
--- NOTE | 2020-07-04 00:47 | PQF ---
CLINICAL DOCUMENTATION CLARIFICATION FORM: Dear : MARISEL PULIDO MD Date / Time: 07/04/2020 Please exercise your independent, professional judgment in responding to the clarification form. Clinical indicators are provided on the bottom of this form for your review Please check appropriate box(es): to clarify the type of pneumonia [ ] Aspiration Pneumonia [ ] Empirically treating Gram Negative Pneumonia [ ] Empirically treating Anaerobic Pneumonia [ ] Pneumonia secondary to (specify organism / underlying disease) [ ] Simple Pneumonia [ ] Bronchopneumonia [ X ] Pneumonia of unknown etiology [ ] Other diagnosis (Please specify if any) [ ] Unable to determine Physician Signature: Date/Time: For continuity of documentation, please document condition throughout progress notes and discharge summary. Thank You. To be completed by CDI/Coding staff for physician review: Present Clinical Indicators - Signs / Symptoms / Labs Results and Location in Medical Record [ ] Fever, Chest pain, expectoration [x] Elevated WBC 11.4 Laboratory on 06/29 [ ] Current aspiration or vomiting [x] R sided pneumonia ED provider report on 06/26 [x] Acute hypoxic respiratory failure2/2 PNA Family medicine PN on 06/28 [ ] Current NG tube [ ] Decreased LOC or altered mental status [ ] Dysphagia / + swallow study / impaired gag reflex [x] Productive of green sputum ED provider report on 06/26 [x] SOB, Hypoxia, ABGs, O2 sats SOB, hypoxia- ED provider report on 06/26 [ ] Pulmonary infiltrate / CXR results Present Risk Factors Results and Location in Medical Record [ ] Severe Debility and or Dementia [ ] Dysphagia / GERD / Hiatal hernia [ ] Immunocompromised [ ] Tube feedings [x] COPD exacerbation H&P on 06/27 [ ] Tobacco abuse / exposure [ ] On home antibiotics for PNA w/o improvement Present Treatments Results and Location in Medical Record [x] Vancomycin 1.5gm IV Medication on 06/26 [x] Rocephin 1gm IV Medication from 06/27 to 06/29 [x] Azithromycin 500mg Medication on 06/27 [ ] Pulmonary consult [ ] IV fluids [ ] Aggressive Pulmonary Toilet [ ] Serial CXRs CDS/Psychological Assistant Signature: AAS Phone #: Date/Time: 07/04/2020 This is a permanent part of the Medical Record [facility]
== END 2020-06-29 18:36 | disposition home or self-care (01) | DRG 193 ==
LOC: ERS 16:40 → 2SE 22:22 → ERHOLD 22:41 → 2SE 06-27 06:04
PROVIDERS: ADMIT Student in an Organized Health Care Education/Training Program; ATTEND Student in an Organized Health Care Education/Training Program
PROC: 5A1D70Z Performance of Urinary Filtration, Intermittent, Less than 6 Hours Per Day (ICD-10-PCS; principal; 2020-06-27)
DX: J18.9 Pneumonia, unspecified organism (principal); J96.01 Acute respiratory failure with hypoxia; N18.6 End stage renal disease; I12.0 Hypertensive chronic kidney disease with stage 5 chronic kidney disease or end stage renal disease; J44.0 Chronic obstructive pulmonary disease with (acute) lower respiratory infection; J44.1 Chronic obstructive pulmonary disease with (acute) exacerbation; I24.8 Other forms of acute ischemic heart disease; E87.5 Hyperkalemia; F17.210 Nicotine dependence, cigarettes, uncomplicated; K21.9 Gastro-esophageal reflux disease without esophagitis; G47.33 Obstructive sleep apnea (adult) (pediatric); D63.1 Anemia in chronic kidney disease; R41.0 Disorientation, unspecified; Z20.828 Contact with and (suspected) exposure to other viral communicable diseases; M48.00 Spinal stenosis, site unspecified; E11.22 Type 2 diabetes mellitus with diabetic chronic kidney disease; I16.0 Hypertensive urgency; R77.8 Other specified abnormalities of plasma proteins; Z88.6 Allergy status to analgesic agent; Z99.2 Dependence on renal dialysis; Z79.82 Long term (current) use of aspirin; Z79.899 Other long term (current) drug therapy
CPT/HCPCS: 36415; 36416; 71046; 80053; 82553; 83880; 84145; 84484; 85025; 87340; 90935; 93005; 94760; 96365; 96366; 96367; G0257; J0360; J0456; J0692; J0696; J1644; J3370; J3410; J3486; J3490; J7050; J7512; J7620; U0002

== ENCOUNTER 2021-09-04 22:26 | Inpatient (IN) | payer MEDICARE ==
[2021-09-04 23:25] LABS: #Basophils 0.1 thou/uL (0.0-0.2); #Eosinphils 0.8 thou/uL (0.0-0.7); #Lymphocytes 1.2 thou/uL (1.20-3.40); #Neutrophils 5.5 thou/uL (1.40-6.50); %Basophils 0.6 % (0.0-1.0); %Eosinophils 9.1 % (0.0-10.0); %Lymphocytes 14.2 % (21.0-51.0); %Monocytes 11.8 % (0.0-10.0); %Neutrophils 64.3 % (42.0-75.0); Hemoglobin 12.6 g/dL (14.0-18.0); Mean Corpuscular HGB CONC 31.4 g/dL (32.0-36.0); Mean Corpuscular Hemoglobin 30.7 pg (27.0-31.0); Mean Corpuscular Volume 97.6 fL (78.0-98.0); Mean Platelet Volume 8.8 fL (7.4-10.4); Platelet Count 166 thou/uL (130-400); RBC Distribution Width 14.6 % (11.5-14.5); Red Blood Cell (RBC) Count 4.09 mill/uL (4.70-6.10); White Blood Cell (WBC) Count 8.6 thou/uL (4.8-10.8)
[2021-09-04 23:47] LABS: ALT (SGPT) 9 U/L (8-55); AST (SGOT) 16 U/L (5-34); Albumin 3.8 g/dL (3.4-4.8); Alkaline Phosphatase 99 U/L (40-110); Anion Gap 25 mmol/L (10-20); BUN (Urea Nitrogen) 22 mg/dL (8.4-25.7); Bilirubin, Total 0.5 mg/dL (0.2-1.2); Calc. Creatinine Clearance 0 mL/min (70-130); Calcium 9.5 mg/dL (7.8-10.44); Carbon Dioxide 21 mmol/L (23-31); Chloride 96 mmol/L (98-107); Globulin 3.9 g/dL (2.4-3.5); Glucose 98 mg/dL (83-110); Potassium 4.4 mmol/L (3.5-5.1); Protein, Total 7.7 g/dL (5.8-8.1); Sodium 138 mmol/L (136-145)
[2021-09-05 00:10] LABS: CKMB 1.3 ng/mL (0-6.6)
[2021-09-05] MEDS ORDERED: Morphine 4 MG/ML VIAL ONE (00:13)
[2021-09-05] MEDS ORDERED: Aspirin 325 MG TAB ONE (00:14)
[2021-09-05] MEDS ORDERED: Ondansetron PF 4 MG/2 ML Vial ONE (00:14)
[2021-09-05] MEDS ORDERED: hydrALAZINE 20 MG/ML VIAL SLOW IVP PRN (01:07)
[2021-09-05] MEDS ORDERED: Polyethylene Glycol 3350 17 GM Packet PO PRN (01:31)
[2021-09-05] MEDS ORDERED: Senokot S 8.6-50 MG TAB PO PRN (01:40)
[2021-09-05 02:52] VITALS: BMI 19.8
[2021-09-05] MEDS ORDERED: hydrALAZINE 20 MG/ML VIAL SLOW IVP SCH (03:30)
[2021-09-05 03:41] LABS: Magnesium 2.5 mg/dL (1.6-2.6)
[2021-09-05 05:19] LABS: Cardiac Risk 3.8 (Less than 4.5)
[2021-09-05 05:24] LABS: Troponin I 0.046 ng/mL (< 0.028)
[2021-09-05] MEDS: Mometasone 100 MCG/Formoterol 5 MCG 120 PUFF INHALER INH SCH ×2 (06:30→22:28)
[2021-09-05] MEDS ORDERED: Ferric Citrate [Auryxia] 210 MG Tablet PO SCH (08:00)
[2021-09-05 08:35] LABS: Troponin I 0.062 ng/mL (< 0.028)
[2021-09-05] MEDS: Heparin 5,000 UNITS/ML VIAL SC SCH ×3 (08:42→22:29)
[2021-09-05] MEDS: hydrALAZINE 25 MG TAB PO SCH ×3 (08:43→22:29)
[2021-09-05] MEDS: Carvedilol 25 MG TAB PO SCH ×2 (08:49→22:29)
[2021-09-05] MEDS: NIFEdipine XL 90 MG TAB PO SCH (08:56)
[2021-09-05] MEDS: Loratadine 10 MG TAB PO SCH (08:56)
[2021-09-05] MEDS: Isosorbide Dinitrate 20 MG TAB PO SCH ×2 (08:56→22:30)
[2021-09-05] MEDS: guaiFENesin ER 600 MG TAB PO SCH ×2 (08:56→22:29)
[2021-09-05] MEDS ORDERED: Famotidine 20 MG TAB PO SCH (09:00)
[2021-09-05] MEDS ORDERED: Non-Formulary Item 1 EACH (Budesonide/Formoterol Fumarate [Budesonide-Formoterol 160-4.5] IH SCH (09:00)
[2021-09-05] MEDS ORDERED: Clopidogrel Bisulfate 75 MG TAB PO SCH (09:30)
[2021-09-05] MEDS ORDERED: Iopamidol 370 76% 100 ML VIAL ONE (09:33)
[2021-09-05] MEDS: Acetaminophen 325 MG TAB PO PRN (12:02)
[2021-09-05] MEDS ORDERED: Lorazepam 2 MG/ML VIAL SLOW IVP SCH (14:00)
[2021-09-05 14:59] LABS: #Basophils 0.1 thou/uL (0.0-0.2); #Eosinphils 0.8 thou/uL (0.0-0.7); #Lymphocytes 1.1 thou/uL (1.20-3.40); #Monocytes 0.7 thou/uL (0.11-0.59); #Neutrophils 3.9 thou/uL (1.40-6.50); %Basophils 1.2 % (0.0-1.0); %Eosinophils 12.4 % (0.0-10.0); %Monocytes 10.8 % (0.0-10.0); %Neutrophils 58.7 % (42.0-75.0); Hemoglobin 11.1 g/dL (14.0-18.0); Mean Corpuscular HGB CONC 29.5 g/dL (32.0-36.0); Mean Corpuscular Hemoglobin 28.9 pg (27.0-31.0); Mean Corpuscular Volume 98.1 fL (78.0-98.0); Mean Platelet Volume 8.8 fL (7.4-10.4); Platelet Count 157 thou/uL (130-400); RBC Distribution Width 14.6 % (11.5-14.5); Red Blood Cell (RBC) Count 3.84 mill/uL (4.70-6.10); White Blood Cell (WBC) Count 6.6 thou/uL (4.8-10.8)
[2021-09-05 15:21] LABS: Anisocytosis SLIGHT = 6-15 cells (100X) (0-5/hpf); MDiff Complete? YES; Ovalocytes SLIGHT = 2-5 cells (100X) (0-1/hpf); Platelet Morphology Comment Appears Adequate; Polychromasia SLIGHT = 2-3 cells (100X) (0-2/hpf); Schistocytes SLIGHT = 2-5 cells (100X) (0-1/hpf)
[2021-09-05 15:24] LABS: Anion Gap 18 mmol/L (10-20); BUN (Urea Nitrogen) 28 mg/dL (8.4-25.7); Calc. Creatinine Clearance 8 mL/min (70-130); Calcium 9.1 mg/dL (7.8-10.44); Carbon Dioxide 29 mmol/L (23-31); Chloride 94 mmol/L (98-107); Glucose 106 mg/dL (83-110); Potassium 5.6 mmol/L (3.5-5.1); Sodium 135 mmol/L (136-145)
[2021-09-05] MEDS ORDERED: Polyethylene Glycol 3350 17 GM Packet PO SCH (17:00)
[2021-09-05 17:32] LABS: SARS-CoV-2 PCR by NAA DETECTED (NotDetected)
[2021-09-05 18:55] LABS: Syphilis Antibody Nonreactive (Nonreactive); Syphilis Antibody Index 0.05 S/CO (<1.00 Non-Reactive)
[2021-09-05] MEDS: Atorvastatin Calcium 40 MG TAB PO SCH (22:29)
[2021-09-06 05:18] LABS: #Basophils 0.1 thou/uL (0.0-0.2); #Eosinphils 0.8 thou/uL (0.0-0.7); #Lymphocytes 1.2 thou/uL (1.20-3.40); #Monocytes 0.7 thou/uL (0.11-0.59); #Neutrophils 4.6 thou/uL (1.40-6.50); %Basophils 0.8 % (0.0-1.0); %Eosinophils 11.1 % (0.0-10.0); %Lymphocytes 16.6 % (21.0-51.0); %Monocytes 9.3 % (0.0-10.0); %Neutrophils 62.2 % (42.0-75.0); Hemoglobin 10.6 g/dL (14.0-18.0); Mean Corpuscular HGB CONC 30.8 g/dL (32.0-36.0); Mean Corpuscular Hemoglobin 30.4 pg (27.0-31.0); Mean Corpuscular Volume 98.8 fL (78.0-98.0); Mean Platelet Volume 8.7 fL (7.4-10.4); Platelet Count 165 thou/uL (130-400); RBC Distribution Width 14.8 % (11.5-14.5); Red Blood Cell (RBC) Count 3.47 mill/uL (4.70-6.10); White Blood Cell (WBC) Count 7.4 thou/uL (4.8-10.8)
[2021-09-06 05:26] LABS: Anion Gap 14 mmol/L (10-20); BUN (Urea Nitrogen) 34 mg/dL (8.4-25.7); Calc. Creatinine Clearance 7 mL/min (70-130); Calcium 9.6 mg/dL (7.8-10.44); Carbon Dioxide 32 mmol/L (23-31); Chloride 91 mmol/L (98-107); Glucose 92 mg/dL (83-110); Potassium 4.5 mmol/L (3.5-5.1); Sodium 132 mmol/L (136-145)
[2021-09-06] MEDS: Mometasone 100 MCG/Formoterol 5 MCG 120 PUFF INHALER INH SCH ×2 (06:39→22:14)
[2021-09-06] MEDS ORDERED: Albuterol 200 PUFF (6.7GM INHALER) INH SCH (07:00)
[2021-09-06] MEDS: guaiFENesin ER 600 MG TAB PO SCH (08:29)
[2021-09-06] MEDS: Loratadine 10 MG TAB PO SCH (08:30)
[2021-09-06] MEDS: Aspirin 81 mg Enteric Coated Tablet PO SCH (08:30)
[2021-09-06] MEDS: Heparin 5,000 UNITS/ML VIAL SC SCH ×3 (08:30→22:13)
[2021-09-06] MEDS ORDERED: Heparin 10,000 UNITS/ 10 ML VIAL ONE (08:32)
[2021-09-06] MEDS ORDERED: Clopidogrel Bisulfate 75 MG TAB PO SCH (09:00)
[2021-09-06 09:57] LABS: HBSAg Index 0.24 S/CO (0-0.99); Hep B Core Total Ab Non-Reactive (NonReactive); Hep B Core Total Index 0.05 S/CO (0-0.79); Hep B Surf Ag Non-Reactive S/CO (NonReactive); Hep C IgG Ab Non-Reactive (NonReactive); Hep C Index 0.12 S/CO (0-0.79)
[2021-09-06] MEDS: Acetaminophen 325 MG TAB PO PRN ×3 (10:06→22:14)
[2021-09-06] MEDS ORDERED: Famotidine 20 MG TAB PO SCH (10:45)
[2021-09-06 11:05] LABS: Hep B Surf AB EQUIVOCAL (NonReactive)
[2021-09-06 11:06] LABS: HBSAB Concentration 9.06 mIU/mL
[2021-09-06] MEDS: NIFEdipine XL 90 MG TAB PO SCH (11:47)
[2021-09-06] MEDS: hydrALAZINE 25 MG TAB PO SCH (11:48)
[2021-09-06] MEDS: Isosorbide Dinitrate 20 MG TAB PO SCH (11:48)
[2021-09-06] MEDS: Carvedilol 25 MG TAB PO SCH ×2 (14:07→22:13)
[2021-09-06] MEDS: Atorvastatin Calcium 40 MG TAB PO SCH (22:13)
[2021-09-06] MEDS: Albuterol 200 PUFF (6.7GM INHALER) INH SCH (22:14)
[2021-09-07 06:29] LABS: #Basophils 0.1 thou/uL (0.0-0.2); #Eosinphils 0.8 thou/uL (0.0-0.7); #Lymphocytes 1.6 thou/uL (1.20-3.40); #Monocytes 0.8 thou/uL (0.11-0.59); %Basophils 1.2 % (0.0-1.0); %Eosinophils 10.7 % (0.0-10.0); %Lymphocytes 21.7 % (21.0-51.0); %Monocytes 10.7 % (0.0-10.0); %Neutrophils 55.6 % (42.0-75.0); Anion Gap 15 mmol/L (10-20); BUN (Urea Nitrogen) 21 mg/dL (8.4-25.7); Calc. Creatinine Clearance 9 mL/min (70-130); Calcium 8.8 mg/dL (7.8-10.44); Carbon Dioxide 25 mmol/L (23-31); Chloride 99 mmol/L (98-107); Glucose 71 mg/dL (83-110); Hemoglobin 9.9 g/dL (14.0-18.0); Hypochromia SLIGHT = 6-15 cells (100X) (0-5/hpf); MDiff Complete? YES; Mean Corpuscular HGB CONC 29.8 g/dL (32.0-36.0); Mean Corpuscular Hemoglobin 29.5 pg (27.0-31.0); Mean Corpuscular Volume 99.1 fL (78.0-98.0); Mean Platelet Volume 8.9 fL (7.4-10.4); Platelet Count 146 thou/uL (130-400); Potassium 4.3 mmol/L (3.5-5.1); RBC Distribution Width 14.7 % (11.5-14.5); Red Blood Cell (RBC) Count 3.35 mill/uL (4.70-6.10); Sodium 135 mmol/L (136-145); White Blood Cell (WBC) Count 7.1 thou/uL (4.8-10.8)
[2021-09-07] MEDS: Heparin 5,000 UNITS/ML VIAL SC SCH ×3 (08:05→21:21)
[2021-09-07] MEDS: Carvedilol 25 MG TAB PO SCH ×2 (08:06→21:19)
[2021-09-07] MEDS: Famotidine 20 MG TAB PO SCH (08:07)
[2021-09-07] MEDS: Aspirin 81 mg Enteric Coated Tablet PO SCH (08:07)
[2021-09-07] MEDS: Mometasone 100 MCG/Formoterol 5 MCG 120 PUFF INHALER INH SCH ×3 (08:37→21:25)
[2021-09-07] MEDS ORDERED: hydrALAZINE 25 MG TAB PO SCH ×3 (09:30→16:45)
[2021-09-07] MEDS: Acetaminophen 325 MG TAB PO PRN ×2 (10:31→14:31)
[2021-09-07] MEDS: Albuterol 200 PUFF (6.7GM INHALER) INH SCH ×3 (19:39→21:25)
[2021-09-07] MEDS: hydrALAZINE 25 MG TAB PO SCH (21:20)
[2021-09-07] MEDS: Atorvastatin Calcium 40 MG TAB PO SCH (21:21)
[2021-09-08 05:09] LABS: #Basophils 0.1 thou/uL (0.0-0.2); #Eosinphils 0.7 thou/uL (0.0-0.7); #Lymphocytes 1.4 thou/uL (1.20-3.40); #Monocytes 0.7 thou/uL (0.11-0.59); #Neutrophils 3.2 thou/uL (1.40-6.50); %Eosinophils 12.2 % (0.0-10.0); %Lymphocytes 22.6 % (21.0-51.0); %Monocytes 11.6 % (0.0-10.0); %Neutrophils 52.6 % (42.0-75.0); Hemoglobin 10.2 g/dL (14.0-18.0); Mean Corpuscular HGB CONC 30.4 g/dL (32.0-36.0); Mean Corpuscular Hemoglobin 30.2 pg (27.0-31.0); Mean Corpuscular Volume 99.1 fL (78.0-98.0); Mean Platelet Volume 8.6 fL (7.4-10.4); Platelet Count 142 thou/uL (130-400); RBC Distribution Width 14.9 % (11.5-14.5); Red Blood Cell (RBC) Count 3.37 mill/uL (4.70-6.10)
[2021-09-08 05:33] LABS: Anion Gap 18 mmol/L (10-20); BUN (Urea Nitrogen) 32 mg/dL (8.4-25.7); Calc. Creatinine Clearance 7 mL/min (70-130); Calcium 8.7 mg/dL (7.8-10.44); Carbon Dioxide 23 mmol/L (23-31); Chloride 95 mmol/L (98-107); Glucose 74 mg/dL (83-110); Potassium 4.9 mmol/L (3.5-5.1); Sodium 131 mmol/L (136-145)
[2021-09-08] MEDS: Mometasone 100 MCG/Formoterol 5 MCG 120 PUFF INHALER INH SCH ×2 (06:36→18:02)
[2021-09-08] MEDS: Albuterol 200 PUFF (6.7GM INHALER) INH SCH ×4 (06:36→21:56)
[2021-09-08] MEDS: Aspirin 81 mg Enteric Coated Tablet PO SCH (08:47)
[2021-09-08] MEDS: Heparin 5,000 UNITS/ML VIAL SC SCH ×3 (08:47→21:55)
[2021-09-08] MEDS: Carvedilol 25 MG TAB PO SCH ×2 (08:48→21:56)
[2021-09-08] MEDS: Famotidine 20 MG TAB PO SCH (08:48)
[2021-09-08] MEDS ORDERED: hydrALAZINE 25 MG TAB PO SCH ×2 (10:23→10:30)
[2021-09-08] MEDS: hydrALAZINE 25 MG TAB PO SCH ×3 (12:30→21:55)
[2021-09-08] MEDS: Acetaminophen 325 MG TAB PO PRN (15:05)
[2021-09-08] MEDS: Atorvastatin Calcium 40 MG TAB PO SCH (21:55)
[2021-09-09] MEDS: Mometasone 100 MCG/Formoterol 5 MCG 120 PUFF INHALER INH SCH ×2 (05:47→17:30)
[2021-09-09] MEDS: Albuterol 200 PUFF (6.7GM INHALER) INH SCH ×4 (05:47→17:30)
[2021-09-09 06:05] LABS: Anion Gap 16 mmol/L (10-20); BUN (Urea Nitrogen) 42 mg/dL (8.4-25.7); Calc. Creatinine Clearance 6 mL/min (70-130); Calcium 8.7 mg/dL (7.8-10.44); Carbon Dioxide 24 mmol/L (23-31); Chloride 90 mmol/L (98-107); Glucose 88 mg/dL (83-110); Sodium 125 mmol/L (136-145)
[2021-09-09] MEDS: hydrALAZINE 25 MG TAB PO SCH ×3 (08:50→21:31)
[2021-09-09] MEDS: Heparin 5,000 UNITS/ML VIAL SC SCH ×3 (08:50→21:32)
[2021-09-09] MEDS: Famotidine 20 MG TAB PO SCH (08:50)
[2021-09-09] MEDS: Carvedilol 25 MG TAB PO SCH ×2 (08:50→21:31)
[2021-09-09] MEDS: Aspirin 81 mg Enteric Coated Tablet PO SCH (08:51)
[2021-09-09] MEDS ORDERED: Heparin 10,000 UNITS/ 10 ML VIAL ONE (11:42)
[2021-09-09] MEDS: Acetaminophen 325 MG TAB PO PRN ×2 (12:54→21:30)
[2021-09-09] MEDS: Atorvastatin Calcium 40 MG TAB PO SCH (21:32)
[2021-09-10 05:17] LABS: Anion Gap 15 mmol/L (10-20); BUN (Urea Nitrogen) 19 mg/dL (8.4-25.7); Calc. Creatinine Clearance 10 mL/min (70-130); Calcium 8.5 mg/dL (7.8-10.44); Carbon Dioxide 25 mmol/L (23-31); Chloride 94 mmol/L (98-107); Glucose 80 mg/dL (83-110); Potassium 4.3 mmol/L (3.5-5.1); Sodium 130 mmol/L (136-145)
[2021-09-10] MEDS: Acetaminophen 325 MG TAB PO PRN ×2 (05:53→11:01)
[2021-09-10] MEDS: Albuterol 200 PUFF (6.7GM INHALER) INH SCH ×4 (05:54→16:58)
[2021-09-10] MEDS: Mometasone 100 MCG/Formoterol 5 MCG 120 PUFF INHALER INH SCH ×2 (05:55→16:58)
[2021-09-10] MEDS: Carvedilol 25 MG TAB PO SCH ×2 (07:55→20:53)
[2021-09-10] MEDS: Aspirin 81 mg Enteric Coated Tablet PO SCH (07:55)
[2021-09-10] MEDS: hydrALAZINE 25 MG TAB PO SCH ×3 (07:56→20:53)
[2021-09-10] MEDS: Heparin 5,000 UNITS/ML VIAL SC SCH ×3 (07:56→20:54)
[2021-09-10] MEDS: Famotidine 20 MG TAB PO SCH (07:56)
[2021-09-10] MEDS: Atorvastatin Calcium 40 MG TAB PO SCH (20:53)
[2021-09-11] MEDS: Acetaminophen 325 MG TAB PO PRN ×3 (01:48→19:49)
[2021-09-11 04:52] LABS: Anion Gap 14 mmol/L (10-20); BUN (Urea Nitrogen) 27 mg/dL (8.4-25.7); Calc. Creatinine Clearance 8 mL/min (70-130); Calcium 8.4 mg/dL (7.8-10.44); Carbon Dioxide 26 mmol/L (23-31); Chloride 92 mmol/L (98-107); Glucose 71 mg/dL (83-110); Potassium 4.7 mmol/L (3.5-5.1); Sodium 127 mmol/L (136-145)
[2021-09-11 05:08] LABS: #Basophils 0.1 thou/uL (0.0-0.2); #Eosinphils 0.5 thou/uL (0.0-0.7); #Lymphocytes 1.1 thou/uL (1.20-3.40); #Monocytes 0.6 thou/uL (0.11-0.59); #Neutrophils 2.3 thou/uL (1.40-6.50); %Basophils 1.3 % (0.0-1.0); %Eosinophils 11.5 % (0.0-10.0); %Lymphocytes 23.2 % (21.0-51.0); %Monocytes 13.7 % (0.0-10.0); %Neutrophils 50.3 % (42.0-75.0); Mean Corpuscular HGB CONC 31.9 g/dL (32.0-36.0); Mean Corpuscular Hemoglobin 30.7 pg (27.0-31.0); Mean Corpuscular Volume 96.2 fL (78.0-98.0); Mean Platelet Volume 9.1 fL (7.4-10.4); Platelet Count 113 thou/uL (130-400); Platelet Morphology Comment Appears Decreased; RBC Distribution Width 14.9 % (11.5-14.5); Red Blood Cell (RBC) Count 3.26 mill/uL (4.70-6.10); White Blood Cell (WBC) Count 4.5 thou/uL (4.8-10.8)
[2021-09-11] MEDS: Mometasone 100 MCG/Formoterol 5 MCG 120 PUFF INHALER INH SCH ×2 (06:15→18:54)
[2021-09-11] MEDS: Albuterol 200 PUFF (6.7GM INHALER) INH SCH ×4 (06:15→19:50)
[2021-09-11] MEDS: Aspirin 81 mg Enteric Coated Tablet PO SCH (09:10)
[2021-09-11] MEDS: Famotidine 20 MG TAB PO SCH (09:10)
[2021-09-11] MEDS: Heparin 5,000 UNITS/ML VIAL SC SCH ×3 (09:10→21:50)
[2021-09-11] MEDS ORDERED: Heparin 10,000 UNITS/ 10 ML VIAL ONE (09:32)
[2021-09-11] MEDS: Carvedilol 25 MG TAB PO SCH ×2 (11:05→21:46)
[2021-09-11] MEDS: hydrALAZINE 25 MG TAB PO SCH ×3 (11:05→21:53)
[2021-09-11] MEDS: Atorvastatin Calcium 40 MG TAB PO SCH (21:46)
[2021-09-12 05:15] LABS: Anion Gap 10 mmol/L (10-20); BUN (Urea Nitrogen) 15 mg/dL (8.4-25.7); Calc. Creatinine Clearance 12 mL/min (70-130); Calcium 8.4 mg/dL (7.8-10.44); Carbon Dioxide 32 mmol/L (23-31); Chloride 95 mmol/L (98-107); Glucose 85 mg/dL (83-110); Potassium 4.2 mmol/L (3.5-5.1); Sodium 133 mmol/L (136-145)
[2021-09-12] MEDS: Mometasone 100 MCG/Formoterol 5 MCG 120 PUFF INHALER INH SCH ×2 (06:37→17:52)
[2021-09-12] MEDS: Albuterol 200 PUFF (6.7GM INHALER) INH SCH ×4 (06:38→17:52)
[2021-09-12] MEDS: Carvedilol 25 MG TAB PO SCH ×2 (08:08→21:05)
[2021-09-12] MEDS: Aspirin 81 mg Enteric Coated Tablet PO SCH (08:08)
[2021-09-12] MEDS: Famotidine 20 MG TAB PO SCH (08:08)
[2021-09-12] MEDS: hydrALAZINE 25 MG TAB PO SCH ×3 (08:09→21:06)
[2021-09-12] MEDS: Heparin 5,000 UNITS/ML VIAL SC SCH ×3 (08:11→21:06)
[2021-09-12] MEDS: Acetaminophen 325 MG TAB PO PRN ×2 (10:21→23:50)
[2021-09-12] MEDS: Atorvastatin Calcium 40 MG TAB PO SCH (21:05)
[2021-09-13 05:01] LABS: Anion Gap 15 mmol/L (10-20); BUN (Urea Nitrogen) 22 mg/dL (8.4-25.7); Calc. Creatinine Clearance 9 mL/min (70-130); Calcium 8.4 mg/dL (7.8-10.44); Carbon Dioxide 26 mmol/L (23-31); Chloride 95 mmol/L (98-107); Glucose 71 mg/dL (83-110); Potassium 4.7 mmol/L (3.5-5.1); Sodium 131 mmol/L (136-145)
[2021-09-13] MEDS: Albuterol 200 PUFF (6.7GM INHALER) INH SCH ×3 (06:22→16:08)
[2021-09-13] MEDS: Mometasone 100 MCG/Formoterol 5 MCG 120 PUFF INHALER INH SCH (06:24)
[2021-09-13] MEDS: Aspirin 81 mg Enteric Coated Tablet PO SCH (08:36)
[2021-09-13] MEDS: Famotidine 20 MG TAB PO SCH (08:36)
[2021-09-13] MEDS: Carvedilol 25 MG TAB PO SCH (08:38)
[2021-09-13] MEDS: hydrALAZINE 25 MG TAB PO SCH ×2 (08:39→16:09)
[2021-09-13] MEDS: Heparin 5,000 UNITS/ML VIAL SC SCH ×2 (08:39→16:09)
[2021-09-13] MEDS ORDERED: Heparin 10,000 UNITS/ 10 ML VIAL ONE (09:24)
[2021-09-13 12:14] VITALS: BP 136/63; TEMP 98.5
== END 2021-09-13 17:30 | disposition home health service (06) | DRG 64 ==
LOC: ERS 22:26 → NEURO 09-05 00:16 → OBSVTOIN 09-05 13:50 → 2SW 09-08 14:41
PROVIDERS: ADMIT Family Medicine; ATTEND Family Medicine
PROC: 8E0ZXY6 Isolation (ICD-10-PCS; 2021-09-05)
PROC: 5A1D70Z Performance of Urinary Filtration, Intermittent, Less than 6 Hours Per Day (ICD-10-PCS; 2021-09-06)
PROC: 5A1D70Z Performance of Urinary Filtration, Intermittent, Less than 6 Hours Per Day (ICD-10-PCS; 2021-09-09)
PROC: 5A1D70Z Performance of Urinary Filtration, Intermittent, Less than 6 Hours Per Day (ICD-10-PCS; 2021-09-11)
PROC: 5A1D70Z Performance of Urinary Filtration, Intermittent, Less than 6 Hours Per Day (ICD-10-PCS; principal; 2021-09-13)
DX: I63.211 Cerebral infarction due to unspecified occlusion or stenosis of right vertebral artery (principal); N18.6 End stage renal disease; U07.1 COVID-19; I50.22 Chronic systolic (congestive) heart failure; I13.2 Hypertensive heart and chronic kidney disease with heart failure and with stage 5 chronic kidney disease, or end stage renal disease; J44.9 Chronic obstructive pulmonary disease, unspecified; K21.9 Gastro-esophageal reflux disease without esophagitis; G47.33 Obstructive sleep apnea (adult) (pediatric); E88.09 Other disorders of plasma-protein metabolism, not elsewhere classified; D63.1 Anemia in chronic kidney disease; M54.12 Radiculopathy, cervical region; E87.5 Hyperkalemia; I25.2 Old myocardial infarction; Z88.5 Allergy status to narcotic agent; Z88.0 Allergy status to penicillin; Z79.82 Long term (current) use of aspirin; Z79.899 Other long term (current) drug therapy; Z99.2 Dependence on renal dialysis; Z87.891 Personal history of nicotine dependence
CPT/HCPCS: 36415; 70450; 70496; 70498; 70551; 71045; 72141; 80048; 80053; 80061; 82553; 83735; 84100; 84443; 84484; 85025; 86704; 86706; 86780; 86803; 87340; 90935; 93005; 93306; 93880; 94664; 96372; 96374; 96375; G0257; G0378; J0360; J1644; J2060; J2270; J2405; Q9967; U0003; U0005

== ENCOUNTER 2022-03-24 05:31 | Emergency (ER) | payer MEDICARE ==
[2022-03-24 06:42] LABS: #Basophils 0.1 thou/uL (0.0-0.2); #Eosinphils 0.4 thou/uL (0.0-0.7); #Lymphocytes 1.3 thou/uL (1.20-3.40); #Monocytes 0.7 thou/uL (0.11-0.59); #Neutrophils 5.4 thou/uL (1.40-6.50); %Basophils 1.1 % (0.0-1.0); %Eosinophils 5.3 % (0.0-10.0); %Lymphocytes 16.9 % (21.0-51.0); %Monocytes 9.3 % (0.0-10.0); %Neutrophils 67.5 % (42.0-75.0); Mean Corpuscular HGB CONC 31.8 g/dL (32.0-36.0); Mean Corpuscular Hemoglobin 30.5 pg (27.0-31.0); Mean Platelet Volume 10.1 fL (7.4-10.4); Platelet Count 135 thou/uL (130-400); RBC Distribution Width 13.6 % (11.5-14.5); Red Blood Cell (RBC) Count 3.26 mill/uL (4.70-6.10); White Blood Cell (WBC) Count 7.9 thou/uL (4.8-10.8)
[2022-03-24 07:07] LABS: ALT (SGPT) 9 U/L (8-55); AST (SGOT) 16 U/L (5-34); Albumin 4.1 g/dL (3.4-4.8); Alkaline Phosphatase 127 U/L (40-110); Anion Gap 22 mmol/L (10-20); BUN (Urea Nitrogen) 67 mg/dL (8.4-25.7); Bilirubin, Total 0.8 mg/dL (0.2-1.2); Calc. Creatinine Clearance 0 mL/min (70-130); Calcium 8.9 mg/dL (7.8-10.44); Carbon Dioxide 26 mmol/L (23-31); Chloride 96 mmol/L (98-107); Estimated GFR 5; Globulin 2.9 g/dL (2.4-3.5); Glucose 91 mg/dL (83-110); Potassium 4.9 mmol/L (3.5-5.1); Sodium 139 mmol/L (136-145)
== END 2022-03-24 13:23 | disposition home or self-care (01) ==
LOC: ERS 05:31
DX: E87.70 Fluid overload, unspecified (principal); I12.0 Hypertensive chronic kidney disease with stage 5 chronic kidney disease or end stage renal disease; N18.6 End stage renal disease; Z99.2 Dependence on renal dialysis; F17.210 Nicotine dependence, cigarettes, uncomplicated
CPT/HCPCS: 36415; 71045; 80053; 82553; 83880; 84484; 85025; 90935; 94640; G0257; J7620

== ENCOUNTER 2022-06-23 09:49 | Inpatient (IN) | payer MEDICARE ==
[2022-06-23 10:32] LABS: #Basophils 0.1 thou/uL (0.0-0.2); #Eosinphils 0.4 thou/uL (0.0-0.7); #Lymphocytes 1.3 thou/uL (1.20-3.40); #Monocytes 0.6 thou/uL (0.11-0.59); #Neutrophils 3.3 thou/uL (1.40-6.50); %Eosinophils 7.3 % (0.0-10.0); %Lymphocytes 22.9 % (21.0-51.0); %Monocytes 10.9 % (0.0-10.0); %Neutrophils 57.9 % (42.0-75.0); Hemoglobin 13.8 g/dL (14.0-18.0); Mean Corpuscular HGB CONC 31.6 g/dL (32.0-36.0); Mean Corpuscular Hemoglobin 29.8 pg (27.0-31.0); Mean Corpuscular Volume 94.3 fl (78.0-98.0); Mean Platelet Volume 11.1 fL (7.4-10.4); Platelet Count 125 10x3/uL (130-400); RBC Distribution Width 14.2 % (11.5-14.5); Red Blood Cell (RBC) Count 4.63 mill/uL (4.70-6.10); White Blood Cell (WBC) Count 5.7 10x3/uL (4.8-10.8)
[2022-06-23] MEDS ORDERED: Aspirin 325 MG TAB ONE (11:07)
[2022-06-23] MEDS ORDERED: hydrALAZINE 25 MG TAB ONE ×2 (11:07→22:46)
[2022-06-23 11:15] LABS: CKMB 2.2 ng/mL (0-6.6)
[2022-06-23 12:27] LABS: INR-International Normal Ratio 0.9; PTT 24.6 sec (22.9-36.1)
[2022-06-23 12:39] LABS: ALT (SGPT) 11 U/L (8-55); AST (SGOT) 17 U/L (5-34); Albumin 3.8 g/dL (3.4-4.8); Alkaline Phosphatase 77 U/L (40-110); Anion Gap 18 mmol/L (10-20); BUN (Urea Nitrogen) 21 mg/dL (8.4-25.7); Bilirubin, Total 0.8 mg/dL (0.2-1.2); CK (CPK) 45 U/L (30-200); Calc. Creatinine Clearance 0 mL/min (70-130); Calcium 9.6 mg/dL (7.8-10.44); Carbon Dioxide 28 mmol/L (23-31); Chloride 94 mmol/L (98-107); Estimated GFR 10; Globulin 3.2 g/dL (2.4-3.5); Glucose 143 mg/dL (83-110); Sodium 136 mmol/L (136-145)
[2022-06-23] MEDS ORDERED: Ondansetron PF 4 MG/2 ML Vial IVP PRN (13:51)
[2022-06-23] MEDS ORDERED: Ondansetron ODT 4 MG TAB PO PRN (13:51)
[2022-06-23] MEDS ORDERED: Acetaminophen 325 MG TAB PO PRN (13:51)
[2022-06-23] MEDS ORDERED: Electrolyte Replacement Protocol IVPB PRN (13:55)
[2022-06-23] MEDS ORDERED: niCARdipine 25 MG in Sodium Chloride 0.9% 250 ML 250 ML IVPB PRN ×2 (13:55→14:56)
[2022-06-23 14:04] LABS: Troponin I 0.072 ng/mL (< 0.028)
[2022-06-23] MEDS ORDERED: niCARdipine 25 MG/10 ML VIAL ONE (14:14)
[2022-06-23] MEDS ORDERED: Polyethylene Glycol 3350 17 GM Packet PO PRN (14:49)
[2022-06-23 17:17] LABS: Troponin I 0.071 ng/mL (< 0.028)
[2022-06-23 22:21] VITALS: BMI 28.0
[2022-06-23] MEDS ORDERED: cloNIDine 0.1 MG TAB ONE (22:35)
[2022-06-23] MEDS ORDERED: Aspirin Chewable 81 MG TAB ONE (22:46)
[2022-06-23] MEDS: hydrALAZINE 25 MG TAB PO SCH (22:53)
[2022-06-24] MEDS: Mometasone 100 MCG/Formoterol 5 MCG 120 PUFF INHALER INH SCH ×2 (00:33→07:24)
[2022-06-24] MEDS: hydrALAZINE 25 MG TAB PO SCH ×2 (01:26→09:06)
[2022-06-24] MEDS: Heparin 5,000 UNITS/ML VIAL SC SCH ×2 (01:27→09:06)
[2022-06-24] MEDS: cloNIDine 0.1 MG TAB PO SCH ×2 (01:28→09:06)
[2022-06-24 05:12] LABS: #Basophils 0.1 thou/uL (0.0-0.2); #Eosinphils 0.3 thou/uL (0.0-0.7); #Lymphocytes 1.3 thou/uL (1.20-3.40); #Monocytes 0.6 thou/uL (0.11-0.59); #Neutrophils 2.8 thou/uL (1.40-6.50); %Basophils 1.3 % (0.0-1.0); %Eosinophils 5.7 % (0.0-10.0); %Lymphocytes 26.4 % (21.0-51.0); %Neutrophils 55.5 % (42.0-75.0); Hemoglobin 13.1 g/dL (14.0-18.0); Mean Corpuscular HGB CONC 31.3 g/dL (32.0-36.0); Mean Corpuscular Hemoglobin 29.8 pg (27.0-31.0); Mean Platelet Volume 11.4 fL (7.4-10.4); Platelet Count 115 10x3/uL (130-400); RBC Distribution Width 14.2 % (11.5-14.5); Red Blood Cell (RBC) Count 4.42 mill/uL (4.70-6.10)
[2022-06-24 05:31] LABS: ALT (SGPT) 11 U/L (8-55); AST (SGOT) 17 U/L (5-34); Albumin 3.6 g/dL (3.4-4.8); Alkaline Phosphatase 70 U/L (40-110); BUN (Urea Nitrogen) 26 mg/dL (8.4-25.7); Bilirubin, Total 0.8 mg/dL (0.2-1.2); Calc. Creatinine Clearance 9 mL/min (70-130); Calcium 9.2 mg/dL (7.8-10.44); Carbon Dioxide 23 mmol/L (23-31); Chloride 97 mmol/L (98-107); Estimated GFR 8; Globulin 3.1 g/dL (2.4-3.5); Glucose 74 mg/dL (83-110); Potassium 4.8 mmol/L (3.5-5.1); Protein, Total 6.7 g/dL (5.8-8.1); Sodium 135 mmol/L (136-145)
[2022-06-24 06:19] LABS: Anion Gap 20 mmol/L (10-20)
[2022-06-24] MEDS ORDERED: Aspirin 81 mg Enteric Coated Tablet PO SCH (09:00)
[2022-06-24] MEDS ORDERED: Atorvastatin Calcium 40 MG TAB PO SCH (09:00)
[2022-06-24 11:41] VITALS: BP 191/77; TEMP 98.3
[2022-06-24] MEDS ORDERED: Carvedilol 25 MG TAB PO SCH ×2 (11:45→17:00)
[2022-06-24] MEDS ORDERED: NIFEdipine XL 30 MG TAB PO SCH (11:45)
[2022-06-25] MEDS ORDERED: NIFEdipine XL 30 MG TAB PO SCH (09:00)
== END 2022-06-24 15:54 | disposition home or self-care (01) | DRG 640 ==
LOC: ERS 09:49 → ERHOLD 13:17 → 2NO 06-24 00:31
PROVIDERS: ADMIT Family Medicine; ATTEND Family Medicine
PROC: 5A1D70Z Performance of Urinary Filtration, Intermittent, Less than 6 Hours Per Day (ICD-10-PCS; principal; 2022-06-23)
DX: E16.2 Hypoglycemia, unspecified (principal); G93.41 Metabolic encephalopathy; N18.6 End stage renal disease; I16.1 Hypertensive emergency; I12.0 Hypertensive chronic kidney disease with stage 5 chronic kidney disease or end stage renal disease; Z20.822 Contact with and (suspected) exposure to COVID-19; J44.9 Chronic obstructive pulmonary disease, unspecified; K21.9 Gastro-esophageal reflux disease without esophagitis; D63.1 Anemia in chronic kidney disease; Z99.2 Dependence on renal dialysis; Z88.0 Allergy status to penicillin; Z88.5 Allergy status to narcotic agent; Z79.82 Long term (current) use of aspirin; Z79.899 Other long term (current) drug therapy; Z79.51 Long term (current) use of inhaled steroids; Z87.891 Personal history of nicotine dependence
CPT/HCPCS: 36415; 36416; 70450; 71045; 80053; 82550; 82553; 84484; 85025; 85610; 85730; 93005; 94760; 96365; 96367; J1644; U0003; U0005

== ENCOUNTER 2022-06-29 20:35 | Emergency (ER) | payer MEDICARE ==
[2022-06-29 21:28] LABS: #Basophils 0.1 thou/uL (0.0-0.2); #Eosinphils 0.5 thou/uL (0.0-0.7); #Lymphocytes 1.3 thou/uL (1.20-3.40); #Monocytes 0.6 thou/uL (0.11-0.59); #Neutrophils 5.1 thou/uL (1.40-6.50); %Basophils 0.9 % (0.0-1.0); %Eosinophils 6.5 % (0.0-10.0); %Monocytes 7.4 % (0.0-10.0); %Neutrophils 68.1 % (42.0-75.0); Mean Corpuscular HGB CONC 29.5 g/dL (32.0-36.0); Mean Corpuscular Hemoglobin 29.6 pg (27.0-31.0); Mean Platelet Volume 10.5 fL (7.4-10.4); Platelet Count 102 10x3/uL (130-400); RBC Distribution Width 13.9 % (11.5-14.5); Red Blood Cell (RBC) Count 4.04 mill/uL (4.70-6.10); White Blood Cell (WBC) Count 7.5 10x3/uL (4.8-10.8)
[2022-06-29 22:04] LABS: ALT (SGPT) 10 U/L (8-55); AST (SGOT) 24 U/L (5-34); Albumin 3.8 g/dL (3.4-4.8); Alkaline Phosphatase 72 U/L (40-110); Anion Gap 21 mmol/L (10-20); BUN (Urea Nitrogen) 46 mg/dL (8.4-25.7); Bilirubin, Total 0.7 mg/dL (0.2-1.2); Calc. Creatinine Clearance 0 mL/min (70-130); Calcium 9.4 mg/dL (7.8-10.44); Carbon Dioxide 25 mmol/L (23-31); Chloride 98 mmol/L (98-107); Estimated GFR 5; Globulin 3.6 g/dL (2.4-3.5); Glucose 93 mg/dL (83-110); Potassium 5.6 mmol/L (3.5-5.1); Protein, Total 7.4 g/dL (5.8-8.1); Sodium 138 mmol/L (136-145)
[2022-06-30 00:03] LABS: CKMB 2.6 ng/mL (0-6.6)
[2022-06-30] MEDS ORDERED: Nitroglycerin 50 MG/250 ML BOT 250 ML ONE (08:22)
== END 2022-06-30 00:35 | disposition home or self-care (01) ==
LOC: ERS 20:35
DX: I12.0 Hypertensive chronic kidney disease with stage 5 chronic kidney disease or end stage renal disease (principal); N18.6 End stage renal disease; Z99.2 Dependence on renal dialysis; Z87.891 Personal history of nicotine dependence; Z79.82 Long term (current) use of aspirin; Z79.899 Other long term (current) drug therapy
CPT/HCPCS: 36415; 71045; 80053; 82553; 83880; 84484; 85025; 93005

== ENCOUNTER 2022-09-02 23:27 | Observation (INO) | payer MEDICARE ==
[2022-09-03 00:05] LABS: #Basophils 0.1 thou/uL (0.0-0.2); #Eosinphils 0.3 thou/uL (0.0-0.7); #Lymphocytes 1.3 thou/uL (1.20-3.40); #Monocytes 0.7 thou/uL (0.11-0.59); #Neutrophils 7.5 thou/uL (1.40-6.50); %Basophils 0.5 % (0.0-1.0); %Lymphocytes 13.1 % (21.0-51.0); %Monocytes 7.1 % (0.0-10.0); %Neutrophils 76.2 % (42.0-75.0); Hemoglobin 10.5 g/dL (14.0-18.0); Mean Corpuscular HGB CONC 32.2 g/dL (32.0-36.0); Mean Corpuscular Hemoglobin 30.1 pg (27.0-31.0); Mean Corpuscular Volume 93.5 fl (78.0-98.0); Mean Platelet Volume 10.3 fL (7.4-10.4); Platelet Count 154 10x3/uL (130-400); Red Blood Cell (RBC) Count 3.49 mill/uL (4.70-6.10); White Blood Cell (WBC) Count 9.9 10x3/uL (4.8-10.8)
[2022-09-03] MEDS ORDERED: Ipratropium/Albuterol 3 ML NEB ONE (00:06)
[2022-09-03 00:23] LABS: ALT (SGPT) 16 U/L (8-55); AST (SGOT) 24 U/L (5-34); Albumin 4.5 g/dL (3.4-4.8); Alkaline Phosphatase 112 U/L (40-110); Anion Gap 19 mmol/L (10-20); BUN (Urea Nitrogen) 32 mg/dL (8.4-25.7); Bilirubin, Total 1.1 mg/dL (0.2-1.2); Calc. Creatinine Clearance 0 mL/min (70-130); Carbon Dioxide 31 mmol/L (23-31); Chloride 94 mmol/L (98-107); Estimated GFR 7; Globulin 4.3 g/dL (2.4-3.5); Glucose 83 mg/dL (83-110); Potassium 4.3 mmol/L (3.5-5.1); Protein, Total 8.8 g/dL (5.8-8.1); Sodium 140 mmol/L (136-145)
[2022-09-03 00:48] LABS: CKMB 2.1 ng/mL (0-6.6)
[2022-09-03] MEDS ORDERED: predniSONE 20 MG TAB ONE (01:51)
[2022-09-03] MEDS ORDERED: Aspirin Chewable 81 MG TAB ONE (01:51)
[2022-09-03] MEDS ORDERED: Acetaminophen 325 MG TAB PO PRN (02:25)
[2022-09-03] MEDS ORDERED: Ipratropium/Albuterol 3 ML NEB NEB PRN (02:28)
[2022-09-03] MEDS ORDERED: Polyethylene Glycol 3350 17 GM Packet PO PRN (02:40)
[2022-09-03 03:29] LABS: Troponin I 0.101 ng/mL (< 0.028)
[2022-09-03 03:58] VITALS: BMI 22.4
[2022-09-03 05:43] LABS: SARS-CoV-2 NAA Rapid Test Not Detected (NotDetected)
[2022-09-03] MEDS: Mometasone 100 MCG/Formoterol 5 MCG 120 PUFF INHALER INH SCH ×2 (06:17→19:30)
[2022-09-03] MEDS: Ipratropium/Albuterol 3 ML NEB NEB SCH ×6 (06:22→22:53)
[2022-09-03] MEDS: hydrALAZINE 25 MG TAB PO SCH ×3 (09:45→21:32)
[2022-09-03] MEDS: Atorvastatin Calcium 40 MG TAB PO SCH (09:45)
[2022-09-03] MEDS: Carvedilol 6.25 MG TAB PO SCH ×2 (09:45→21:31)
[2022-09-03] MEDS: Aspirin 81 mg Enteric Coated Tablet PO SCH (09:45)
[2022-09-03] MEDS: predniSONE 20 MG TAB PO SCH (09:46)
[2022-09-03] MEDS: Heparin 5,000 UNITS/ML VIAL SC SCH ×3 (09:46→21:31)
[2022-09-03 11:53] LABS: HBSAB Concentration Less than 8.00 mIU/mL; Hep B Core Total Ab Non-Reactive (NonReactive); Hep B Core Total Index 0.05 S/CO (0-0.79); Hep B Surf AB Non-Reactive (NonReactive); Hep B Surf Ag Non-Reactive S/CO (NonReactive); Hep C IgG Ab Non-Reactive (NonReactive); Hep C Index 0.13 S/CO (0-0.79)
[2022-09-04] MEDS: Ipratropium/Albuterol 3 ML NEB NEB SCH ×3 (03:08→10:34)
[2022-09-04 06:30] LABS: #Lymphocytes 0.7 thou/uL (1.20-3.40); #Monocytes 0.8 thou/uL (0.11-0.59); #Neutrophils 7.1 thou/uL (1.40-6.50); %Eosinophils 0.3 % (0.0-10.0); %Lymphocytes 8.1 % (21.0-51.0); %Monocytes 8.9 % (0.0-10.0); %Neutrophils 82.6 % (42.0-75.0); Hemoglobin 8.9 g/dL (14.0-18.0); Mean Corpuscular HGB CONC 31.7 g/dL (32.0-36.0); Mean Corpuscular Hemoglobin 29.8 pg (27.0-31.0); Mean Corpuscular Volume 94.2 fl (78.0-98.0); Mean Platelet Volume 10.2 fL (7.4-10.4); Platelet Count 139 10x3/uL (130-400); Red Blood Cell (RBC) Count 2.98 mill/uL (4.70-6.10); White Blood Cell (WBC) Count 8.5 10x3/uL (4.8-10.8)
[2022-09-04] MEDS: Mometasone 100 MCG/Formoterol 5 MCG 120 PUFF INHALER INH SCH (06:44)
[2022-09-04 06:55] LABS: Anion Gap 15 mmol/L (10-20); BUN (Urea Nitrogen) 25 mg/dL (8.4-25.7); Calc. Creatinine Clearance 12 mL/min (70-130); Calcium 9.1 mg/dL (7.8-10.44); Carbon Dioxide 30 mmol/L (23-31); Chloride 96 mmol/L (98-107); Estimated GFR 11; Glucose 140 mg/dL (83-110); Potassium 4.1 mmol/L (3.5-5.1); Sodium 137 mmol/L (136-145)
[2022-09-04] MEDS: predniSONE 20 MG TAB PO SCH (08:29)
[2022-09-04] MEDS: Atorvastatin Calcium 40 MG TAB PO SCH (08:29)
[2022-09-04] MEDS: Aspirin 81 mg Enteric Coated Tablet PO SCH (08:29)
[2022-09-04] MEDS: Carvedilol 6.25 MG TAB PO SCH (08:29)
[2022-09-04] MEDS: hydrALAZINE 25 MG TAB PO SCH (08:29)
[2022-09-04] MEDS: Heparin 5,000 UNITS/ML VIAL SC SCH (08:30)
[2022-09-04 12:08] VITALS: BP 121/55; TEMP 97
== END 2022-09-04 14:02 | disposition home or self-care (01) ==
LOC: ERS 23:27 → NEURO 09-03 02:02
PROVIDERS: ADMIT Student in an Organized Health Care Education/Training Program; ATTEND Student in an Organized Health Care Education/Training Program
DX: J44.1 Chronic obstructive pulmonary disease with (acute) exacerbation (principal); I12.0 Hypertensive chronic kidney disease with stage 5 chronic kidney disease or end stage renal disease; E11.22 Type 2 diabetes mellitus with diabetic chronic kidney disease; N18.6 End stage renal disease; D63.1 Anemia in chronic kidney disease; E78.5 Hyperlipidemia, unspecified; G89.29 Other chronic pain; M54.9 Dorsalgia, unspecified; K21.9 Gastro-esophageal reflux disease without esophagitis; G47.33 Obstructive sleep apnea (adult) (pediatric); R77.8 Other specified abnormalities of plasma proteins; E87.70 Fluid overload, unspecified; Z87.891 Personal history of nicotine dependence; Z91.14 Patient's other noncompliance with medication regimen; Z79.52 Long term (current) use of systemic steroids; Z79.82 Long term (current) use of aspirin; Z79.899 Other long term (current) drug therapy; Z88.0 Allergy status to penicillin; Z88.1 Allergy status to other antibiotic agents; Z88.5 Allergy status to narcotic agent; Z91.02 Food additives allergy status; Z99.2 Dependence on renal dialysis; Z20.822 Contact with and (suspected) exposure to COVID-19
CPT/HCPCS: 0240U; 71045; 80048; 80053; 82553; 83880; 84145; 84484 ×3; 85025 ×2; 86704; 93005; 94640 ×6; 36415; 90935; 96372; G0257; G0378; J1644; J7512; J7620

== ENCOUNTER 2022-09-13 00:20 | Emergency (ER) | payer MEDICARE ==
[2022-09-13 01:41] LABS: Hemoglobin 9.2 g/dL (14.0-18.0); Mean Corpuscular HGB CONC 31.8 g/dL (32.0-36.0); Mean Corpuscular Hemoglobin 30.2 pg (27.0-31.0); Mean Corpuscular Volume 94.9 fl (78.0-98.0); Mean Platelet Volume 10.2 fL (7.4-10.4); Platelet Count 136 10x3/uL (130-400); RBC Distribution Width 15.6 % (11.5-14.5); Red Blood Cell (RBC) Count 3.05 mill/uL (4.70-6.10); White Blood Cell (WBC) Count 8.3 10x3/uL (4.8-10.8)
[2022-09-13 01:59] LABS: Band 1 % (5-11); Eosinophils 5 % (0-10); Lymphocytes 15 % (21-51); MDiff Complete? YES; Monocytes 12 % (0-10); Neutrophil 66 % (42-75); Platelet Morphology Comment Appears Adequate; Schistocytes SLIGHT = 2-5 cells (100X) (0-1/hpf)
[2022-09-13 02:00] LABS: ALT (SGPT) 14 U/L (8-55); AST (SGOT) 15 U/L (5-34); Albumin 3.6 g/dL (3.4-4.8); Alkaline Phosphatase 103 U/L (40-110); Anion Gap 16 mmol/L (10-20); BUN (Urea Nitrogen) 29 mg/dL (8.4-25.7); Bilirubin, Total 0.8 mg/dL (0.2-1.2); Calc. Creatinine Clearance 0 mL/min (70-130); Calcium 9.1 mg/dL (7.8-10.44); Carbon Dioxide 32 mmol/L (23-31); Chloride 93 mmol/L (98-107); Estimated GFR 10; Globulin 2.7 g/dL (2.4-3.5); Glucose 85 mg/dL (83-110); Potassium 4.1 mmol/L (3.5-5.1); Protein, Total 6.3 g/dL (5.8-8.1); Sodium 137 mmol/L (136-145)
[2022-09-13 02:22] LABS: CKMB 1.7 ng/mL (0-6.6)
== END 2022-09-13 03:30 | disposition home or self-care (01) ==
LOC: ERS 00:20
DX: I12.0 Hypertensive chronic kidney disease with stage 5 chronic kidney disease or end stage renal disease (principal); N18.6 End stage renal disease; Z99.2 Dependence on renal dialysis; Z87.891 Personal history of nicotine dependence; Z79.82 Long term (current) use of aspirin; Z79.899 Other long term (current) drug therapy
CPT/HCPCS: 36415; 71045; 80053; 82553; 83880; 84484; 85025; 93005

== ENCOUNTER 2022-09-25 22:52 | Emergency (ER) | payer MEDICARE ==
[2022-09-26] MEDS ORDERED: Nitroglycerin 2% Ointment 1 INCH/1 GM Packet ONE (00:06)
[2022-09-26 00:29] LABS: ALT (SGPT) 21 U/L (8-55); AST (SGOT) 27 U/L (5-34); Albumin 3.8 g/dL (3.4-4.8); Alkaline Phosphatase 96 U/L (40-110); Anion Gap 18 mmol/L (10-20); BUN (Urea Nitrogen) 36 mg/dL (8.4-25.7); Bilirubin, Total 0.7 mg/dL (0.2-1.2); Calc. Creatinine Clearance 0 mL/min (70-130); Calcium 10.1 mg/dL (7.8-10.44); Carbon Dioxide 26 mmol/L (23-31); Chloride 99 mmol/L (98-107); Estimated GFR 8; Globulin 3.2 g/dL (2.4-3.5); Glucose 80 mg/dL (83-110); Potassium 4.3 mmol/L (3.5-5.1); Sodium 139 mmol/L (136-145)
[2022-09-26 00:49] LABS: Hemoglobin 8.7 g/dL (14.0-18.0); Mean Corpuscular HGB CONC 30.9 g/dL (32.0-36.0); Mean Corpuscular Hemoglobin 30.1 pg (27.0-31.0); Mean Corpuscular Volume 97.3 fl (78.0-98.0); RBC Distribution Width 15.9 % (11.5-14.5); Red Blood Cell (RBC) Count 2.89 mill/uL (4.70-6.10); White Blood Cell (WBC) Count 9.8 10x3/uL (4.8-10.8)
[2022-09-26] MEDS ORDERED: Diazepam 5 MG TAB ONE (00:59)
[2022-09-26] MEDS ORDERED: Ipratropium/Albuterol 3 ML NEB ONE (00:59)
[2022-09-26] MEDS ORDERED: hydrALAZINE 20 MG/ML VIAL ONE (00:59)
[2022-09-26 01:07] LABS: #Eosinphils 0.3 thou/uL (0.0-0.7); #Lymphocytes 0.9 thou/uL (1.20-3.40); #Monocytes 0.7 thou/uL (0.11-0.59); #Neutrophils 7.8 thou/uL (1.40-6.50); %Basophils 0.3 % (0.0-1.0); %Eosinophils 2.9 % (0.0-10.0); %Lymphocytes 9.4 % (21.0-51.0); %Monocytes 7.5 % (0.0-10.0); %Neutrophils 79.9 % (42.0-75.0); MDiff Complete? YES; Mean Platelet Volume 10.1 fL (7.4-10.4); Platelet Count 114 10x3/uL (130-400); Platelet Morphology Comment Appears Decreased; Schistocytes SLIGHT = 2-5 cells (100X) (0-1/hpf)
== END 2022-09-26 02:20 | disposition home or self-care (01) ==
LOC: ERS 22:52
DX: J18.9 Pneumonia, unspecified organism (principal); I13.11 Hypertensive heart and chronic kidney disease without heart failure, with stage 5 chronic kidney disease, or end stage renal disease; N18.6 End stage renal disease; F17.210 Nicotine dependence, cigarettes, uncomplicated; Z99.2 Dependence on renal dialysis; Z79.82 Long term (current) use of aspirin; Z79.899 Other long term (current) drug therapy
CPT/HCPCS: 71045; 80053; 85025; 93005; J0360; 36415; 96372; J7620

== ENCOUNTER 2022-10-20 09:13 | Inpatient (IN) | payer MEDICARE ==
[2022-10-20 10:54] LABS: #Eosinphils 0.3 thou/uL (0.0-0.7); #Monocytes 0.5 thou/uL (0.11-0.59); #Neutrophils 4.3 thou/uL (1.40-6.50); %Basophils 0.7 % (0.0-1.0); %Eosinophils 4.2 % (0.0-10.0); %Lymphocytes 16.1 % (21.0-51.0); %Monocytes 7.7 % (0.0-10.0); %Neutrophils 71.4 % (42.0-75.0); Hemoglobin 12.4 g/dL (14.0-18.0); Mean Corpuscular HGB CONC 31.3 g/dL (32.0-36.0); Mean Corpuscular Hemoglobin 30.6 pg (27.0-31.0); Mean Corpuscular Volume 97.7 fl (78.0-98.0); Mean Platelet Volume 10.1 fL (7.4-10.4); Platelet Count 120 10x3/uL (130-400); RBC Distribution Width 16.2 % (11.5-14.5); Red Blood Cell (RBC) Count 4.04 mill/uL (4.70-6.10)
[2022-10-20 11:06] LABS: Prothrombin Time 13.3 sec (12.0-14.7)
[2022-10-20 11:07] LABS: PTT 28.2 sec (22.9-36.1)
[2022-10-20 11:10] LABS: Acetaminophen Less than 10.0 mcg/mL (10.0-30.0); Alcohol Less than 10 mg/dL (Less than 10); CK (CPK) 125 U/L (30-200); Magnesium 2.2 mg/dL (1.6-2.6); Salicylate Less than 8.0 mg/dL (15.0-30.0)
[2022-10-20 11:12] LABS: ALT (SGPT) 32 U/L (8-55); AST (SGOT) 30 U/L (5-34); Albumin 4.4 g/dL (3.4-4.8); Alkaline Phosphatase 91 U/L (40-110); Anion Gap 15 mmol/L (10-20); BUN (Urea Nitrogen) 23 mg/dL (8.4-25.7); Bilirubin, Total 0.7 mg/dL (0.2-1.2); Calc. Creatinine Clearance 0 mL/min (70-130); Calcium 10.7 mg/dL (7.8-10.44); Carbon Dioxide 36 mmol/L (23-31); Chloride 94 mmol/L (98-107); Estimated GFR 13; Globulin 3.6 g/dL (2.4-3.5); Glucose 84 mg/dL (83-110); Lipase 96 U/L (8-78); Potassium 3.9 mmol/L (3.5-5.1); Sodium 141 mmol/L (136-145)
[2022-10-20 11:30] LABS: CKMB 2.7 ng/mL (0-6.6)
[2022-10-20 11:36] LABS: SARS-CoV-2 NAA Rapid Test Not Detected (NotDetected)
[2022-10-20 14:26] LABS: Troponin I 0.137 ng/mL (< 0.028)
[2022-10-20] MEDS: hydrALAZINE 25 MG TAB PO SCH ×2 (15:44→20:16)
[2022-10-20 15:53] VITALS: BMI 23.6
[2022-10-20 17:30] LABS: Troponin I 0.133 ng/mL (< 0.028)
[2022-10-20] MEDS ORDERED: Acetaminophen 500 MG TAB PO PRN (17:43)
[2022-10-20] MEDS ORDERED: Cefepime 1 GM in Sodium Chloride 0.9% 100 ML IVPB SCH (18:00)
[2022-10-20] MEDS ORDERED: VANCOMYCIN 1.75 GM/500 ML BAG 1.75 GM in Premix Bag 1 BAG IVPB SCH (18:15)
[2022-10-20] MEDS ORDERED: Vancomycin Hemodialysis Sliding Scale FS SCH (18:15)
[2022-10-20] MEDS: Mometasone 200 MCG/Formoterol 5 MCG 120 PUFF INHALER INH SCH (19:35)
[2022-10-20] MEDS: Carvedilol 25 MG TAB PO SCH (20:15)
[2022-10-20] MEDS ORDERED: Cefepime 2 GM in Sodium Chloride 0.9% 100 ML IVPB SCH (22:00)
[2022-10-20] MEDS: Melatonin 3 MG TAB PO PRN (22:12)
[2022-10-21 06:46] LABS: #Basophils 0.1 thou/uL (0.0-0.2); #Eosinphils 0.3 thou/uL (0.0-0.7); #Lymphocytes 1.1 thou/uL (1.20-3.40); #Monocytes 0.8 thou/uL (0.11-0.59); #Neutrophils 3.2 thou/uL (1.40-6.50); %Eosinophils 4.8 % (0.0-10.0); %Lymphocytes 19.8 % (21.0-51.0); %Monocytes 14.9 % (0.0-10.0); %Neutrophils 59.5 % (42.0-75.0); Hemoglobin 10.5 g/dL (14.0-18.0); Mean Corpuscular HGB CONC 30.3 g/dL (32.0-36.0); Mean Corpuscular Hemoglobin 30.3 pg (27.0-31.0); Platelet Count 104 10x3/uL (130-400); Red Blood Cell (RBC) Count 3.47 mill/uL (4.70-6.10); White Blood Cell (WBC) Count 5.5 10x3/uL (4.8-10.8)
[2022-10-21 06:56] LABS: ALT (SGPT) 24 U/L (8-55); AST (SGOT) 25 U/L (5-34); Albumin 3.3 g/dL (3.4-4.8); Alkaline Phosphatase 77 U/L (40-110); Anion Gap 16 mmol/L (10-20); BUN (Urea Nitrogen) 41 mg/dL (8.4-25.7); Bilirubin, Total 0.7 mg/dL (0.2-1.2); Calc. Creatinine Clearance 10 mL/min (70-130); Calcium 10.1 mg/dL (7.8-10.44); Carbon Dioxide 27 mmol/L (23-31); Chloride 99 mmol/L (98-107); Estimated GFR 8; Globulin 2.8 g/dL (2.4-3.5); Glucose 118 mg/dL (83-110); Potassium 4.8 mmol/L (3.5-5.1); Protein, Total 6.1 g/dL (5.8-8.1); Sodium 137 mmol/L (136-145)
[2022-10-21] MEDS: Mometasone 200 MCG/Formoterol 5 MCG 120 PUFF INHALER INH SCH ×2 (07:32→19:11)
[2022-10-21] MEDS ORDERED: Heparin 10,000 UNITS/ 10 ML VIAL ONE (08:53)
[2022-10-21] MEDS: Aspirin 81 mg Enteric Coated Tablet PO SCH (08:54)
[2022-10-21] MEDS: hydrALAZINE 25 MG TAB PO SCH ×3 (08:55→20:49)
[2022-10-21] MEDS: Carvedilol 25 MG TAB PO SCH ×2 (08:55→20:49)
[2022-10-21] MEDS: Atorvastatin Calcium 40 MG TAB PO SCH (08:57)
[2022-10-21 12:31] LABS: HBSAB Concentration Less than 8.00 mIU/mL; HBSAg Index 0.21 S/CO (0-0.99); Hep B Core Total Ab Non-Reactive (NonReactive); Hep B Core Total Index 0.06 S/CO (0-0.79); Hep B Surf AB Non-Reactive (NonReactive); Hep B Surf Ag Non-Reactive S/CO (NonReactive); Hep C IgG Ab Non-Reactive (NonReactive); Hep C Index 0.14 S/CO (0-0.79)
[2022-10-21] MEDS ORDERED: Cefepime 1 GM in Sodium Chloride 0.9% 100 ML IVPB SCH (17:00)
[2022-10-21] MEDS: Melatonin 3 MG TAB PO PRN (20:49)
[2022-10-22] MEDS: Mometasone 200 MCG/Formoterol 5 MCG 120 PUFF INHALER INH SCH ×2 (07:28→19:35)
[2022-10-22] MEDS: Carvedilol 25 MG TAB PO SCH (08:21)
[2022-10-22] MEDS: Aspirin 81 mg Enteric Coated Tablet PO SCH (08:21)
[2022-10-22] MEDS: hydrALAZINE 25 MG TAB PO SCH ×2 (08:22→15:53)
[2022-10-22] MEDS: Atorvastatin Calcium 40 MG TAB PO SCH (08:22)
[2022-10-22 08:28] LABS: #Basophils 0.1 thou/uL (0.0-0.2); #Eosinphils 0.4 thou/uL (0.0-0.7); #Lymphocytes 1.1 thou/uL (1.20-3.40); #Monocytes 0.8 thou/uL (0.11-0.59); #Neutrophils 4.6 thou/uL (1.40-6.50); %Basophils 0.8 % (0.0-1.0); %Eosinophils 5.8 % (0.0-10.0); %Lymphocytes 15.6 % (21.0-51.0); %Monocytes 10.9 % (0.0-10.0); %Neutrophils 66.8 % (42.0-75.0); Hemoglobin 12.6 g/dL (14.0-18.0); Mean Corpuscular HGB CONC 30.9 g/dL (32.0-36.0); Mean Corpuscular Hemoglobin 30.5 pg (27.0-31.0); Mean Corpuscular Volume 98.6 fl (78.0-98.0); Mean Platelet Volume 10.6 fL (7.4-10.4); Platelet Count 103 10x3/uL (130-400); Red Blood Cell (RBC) Count 4.14 mill/uL (4.70-6.10); White Blood Cell (WBC) Count 6.8 10x3/uL (4.8-10.8)
[2022-10-22 08:36] LABS: ALT (SGPT) 25 U/L (8-55); AST (SGOT) 22 U/L (5-34); Alkaline Phosphatase 81 U/L (40-110); Anion Gap 15 mmol/L (10-20); BUN (Urea Nitrogen) 20 mg/dL (8.4-25.7); Bilirubin, Total 0.7 mg/dL (0.2-1.2); Calc. Creatinine Clearance 13 mL/min (70-130); Calcium 9.9 mg/dL (7.8-10.44); Carbon Dioxide 25 mmol/L (23-31); Chloride 99 mmol/L (98-107); Estimated GFR 12; Globulin 3.5 g/dL (2.4-3.5); Glucose 94 mg/dL (83-110); Potassium 4.1 mmol/L (3.5-5.1); Protein, Total 7.5 g/dL (5.8-8.1); Sodium 135 mmol/L (136-145)
[2022-10-22 08:44] LABS: Vancomycin, Random 12.5 ug/mL (See Comment)
[2022-10-22] MEDS ORDERED: Vancomycin HCl 750 MG in Sodium Chloride 0.9% 250 ML 250 ML IVPB SCH (17:00)
[2022-10-22 17:10] VITALS: BP 123/68; TEMP 97.8
== END 2022-10-22 19:30 | disposition home health service (06) | DRG 551 ==
LOC: ERS 09:13 → ERHOLD 12:19 → T4-A 15:35 → OBSVTOIN 10-22 11:34
PROVIDERS: ADMIT Family Medicine; ATTEND Family Medicine
DX: M51.36 Other intervertebral disc degeneration, lumbar region (principal); N18.6 End stage renal disease; N25.81 Secondary hyperparathyroidism of renal origin; I12.0 Hypertensive chronic kidney disease with stage 5 chronic kidney disease or end stage renal disease; R53.81 Other malaise; I35.0 Nonrheumatic aortic (valve) stenosis; E11.22 Type 2 diabetes mellitus with diabetic chronic kidney disease; J44.9 Chronic obstructive pulmonary disease, unspecified; K21.9 Gastro-esophageal reflux disease without esophagitis; G47.33 Obstructive sleep apnea (adult) (pediatric); R53.1 Weakness; D63.1 Anemia in chronic kidney disease; M54.9 Dorsalgia, unspecified; G89.29 Other chronic pain; R77.8 Other specified abnormalities of plasma proteins; Z88.0 Allergy status to penicillin; Z88.5 Allergy status to narcotic agent; Z99.2 Dependence on renal dialysis; Z88.1 Allergy status to other antibiotic agents; Z98.890 Other specified postprocedural states; Z87.891 Personal history of nicotine dependence; Z82.49 Family history of ischemic heart disease and other diseases of the circulatory system; Z88.8 Allergy status to other drugs, medicaments and biological substances; Z79.82 Long term (current) use of aspirin; Z79.899 Other long term (current) drug therapy; Z20.822 Contact with and (suspected) exposure to COVID-19
CPT/HCPCS: 36415; 70450; 71045; 72100; 72148; 80053; 80202; 80307; 82550; 82553; 83605; 83690; 83735; 83880; 84145; 84443; 84484; 85025; 85610; 85652; 85730; 86140; 86704; 87040; 93005; 96376; G0378; J0692; J1644; J3370; J3490; U0002

== ENCOUNTER 2023-03-26 08:20 | Emergency (ER) | payer MEDICARE ==
[2023-03-26 10:55] LABS: #Basophils 0.1 thou/uL (0.0-0.2); #Monocytes 1.3 thou/uL (0.11-0.59); #Neutrophils 15.4 thou/uL (1.40-6.50); %Basophils 0.3 % (0.0-1.0); %Eosinophils 0.2 % (0.0-10.0); %Monocytes 7.2 % (0.0-10.0); %Neutrophils 86.8 % (42.0-75.0); Hematocrit 35.6 % (42.0-52.0); Hemoglobin 10.9 g/dL (14.0-18.0); Mean Corpuscular HGB CONC 30.6 g/dL (32.0-36.0); Mean Corpuscular Volume 98.1 fl (78.0-98.0); Mean Platelet Volume 11.6 fL (7.4-10.4); Red Blood Cell (RBC) Count 3.63 mill/uL (4.70-6.10); White Blood Cell (WBC) Count 17.7 10x3/uL (4.8-10.8)
[2023-03-26 10:58] LABS: Platelet Count 117 10x3/uL (130-400)
[2023-03-26 11:21] LABS: ALT (SGPT) 22 U/L (8-55); AST (SGOT) 30 U/L (5-34); Alkaline Phosphatase 84 U/L (40-110); Anion Gap 18 mmol/L (10-20); BUN (Urea Nitrogen) 32 mg/dL (8.4-25.7); Bilirubin, Total 0.5 mg/dL (0.2-1.2); CK (CPK) 317 U/L (30-200); Calc. Creatinine Clearance 0 mL/min (70-130); Carbon Dioxide 28 mmol/L (23-31); Estimated GFR 7; Globulin 3.5 g/dL (2.4-3.5); Glucose 132 mg/dL (83-110); Potassium 4.1 mmol/L (3.5-5.1); Protein, Total 7.5 g/dL (5.8-8.1); Sodium 134 mmol/L (136-145)
[2023-03-26 11:25] LABS: Chloride 92 mmol/L (98-107)
== END 2023-03-26 13:13 | disposition home or self-care (01) ==
LOC: ERS 08:20
DX: S39.012A Strain of muscle, fascia and tendon of lower back, initial encounter (principal); K21.9 Gastro-esophageal reflux disease without esophagitis; E78.5 Hyperlipidemia, unspecified; I10 Essential (primary) hypertension; F17.200 Nicotine dependence, unspecified, uncomplicated; Z79.82 Long term (current) use of aspirin; Z79.899 Other long term (current) drug therapy; W18.30XA Fall on same level, unspecified, initial encounter
CPT/HCPCS: 36415; 70450; 72125; 72131; 72170; 80053; 82550; 85025

== ENCOUNTER 2023-07-27 17:21 | Emergency (ER) | payer MEDICARE ==
[2023-07-27 21:37] LABS: #Basophils 0.1 thou/uL (0.0-0.2); #Eosinphils 0.3 thou/uL (0.0-0.7); #Monocytes 0.8 thou/uL (0.11-0.59); #Neutrophils 5.7 thou/uL (1.40-6.50); %Basophils 1.1 % (0.0-1.0); %Eosinophils 4.1 % (0.0-10.0); %Lymphocytes 15.6 % (21.0-51.0); %Neutrophils 68.8 % (42.0-75.0); Hematocrit 37.4 % (42.0-52.0); Hemoglobin 11.5 g/dL (14.0-18.0); Mean Corpuscular HGB CONC 30.7 g/dL (32.0-36.0); Mean Corpuscular Hemoglobin 28.8 pg (27.0-31.0); Mean Corpuscular Volume 93.5 fl (78.0-98.0); Mean Platelet Volume 11.5 fL (7.4-10.4); Platelet Count 176 10x3/uL (130-400); RBC Distribution Width 15.6 % (11.5-14.5); White Blood Cell (WBC) Count 8.3 10x3/uL (4.8-10.8)
[2023-07-27 21:58] LABS: ALT (SGPT) 10 U/L (8-55); AST (SGOT) 20 U/L (5-34); Albumin 4.2 g/dL (3.4-4.8); Alkaline Phosphatase 117 U/L (40-110); Anion Gap 21 mmol/L (10-20); BUN (Urea Nitrogen) 25 mg/dL (8.4-25.7); Bilirubin, Total 0.6 mg/dL (0.2-1.2); Calc. Creatinine Clearance 0 mL/min (70-130); Calcium 9.6 mg/dL (7.8-10.44); Carbon Dioxide 25 mmol/L (23-31); Chloride 97 mmol/L (98-107); Estimated GFR 8; Globulin 4.2 g/dL (2.4-3.5); Glucose 93 mg/dL (83-110); Potassium 3.6 mmol/L (3.5-5.1); Protein, Total 8.4 g/dL (5.8-8.1); Sodium 139 mmol/L (136-145)
[2023-07-27] MEDS ORDERED: Benzonatate 100 MG CAP ONE (22:10)
== END 2023-07-27 23:19 | disposition home or self-care (01) ==
LOC: ERS 17:21
DX: R05.3 Chronic cough (principal); I12.0 Hypertensive chronic kidney disease with stage 5 chronic kidney disease or end stage renal disease; N18.6 End stage renal disease; Z99.2 Dependence on renal dialysis; M72.2 Plantar fascial fibromatosis; K21.9 Gastro-esophageal reflux disease without esophagitis; E78.5 Hyperlipidemia, unspecified; J44.9 Chronic obstructive pulmonary disease, unspecified; F17.200 Nicotine dependence, unspecified, uncomplicated
CPT/HCPCS: 71046; 80053; 85025

== ENCOUNTER 2023-09-20 19:59 | Emergency (ER) | payer MEDICARE ==
[2023-09-20 20:59] LABS: #Basophils 0.1 thou/uL (0.0-0.2); #Eosinphils 0.5 thou/uL (0.0-0.7); #Monocytes 0.7 thou/uL (0.11-0.59); #Neutrophils 6.8 thou/uL (1.40-6.50); %Basophils 0.7 % (0.0-1.0); %Eosinophils 5.1 % (0.0-10.0); %Lymphocytes 10.3 % (21.0-51.0); %Neutrophils 75.6 % (42.0-75.0); Hematocrit 30.7 % (42.0-52.0); Hemoglobin 9.3 g/dL (14.0-18.0); Mean Corpuscular HGB CONC 30.3 g/dL (32.0-36.0); Mean Corpuscular Hemoglobin 29.2 pg (27.0-31.0); Mean Corpuscular Volume 96.2 fl (78.0-98.0); Mean Platelet Volume 11.3 fL (7.4-10.4); Platelet Count 211 10x3/uL (130-400); RBC Distribution Width 16.7 % (11.5-14.5); Red Blood Cell (RBC) Count 3.19 mill/uL (4.70-6.10)
[2023-09-20 21:18] LABS: ALT (SGPT) 13 U/L (8-55); AST (SGOT) 21 U/L (5-34); Albumin 3.5 g/dL (3.4-4.8); Alkaline Phosphatase 101 U/L (40-110); Anion Gap 22 mmol/L (10-20); BUN (Urea Nitrogen) 40 mg/dL (8.4-25.7); Bilirubin, Total 0.6 mg/dL (0.2-1.2); Calc. Creatinine Clearance 0 mL/min (70-130); Calcium 8.2 mg/dL (7.8-10.44); Carbon Dioxide 24 mmol/L (23-31); Chloride 98 mmol/L (98-107); Estimated GFR 5; Globulin 2.8 g/dL (2.4-3.5); Glucose 74 mg/dL (83-110); Potassium 4.2 mmol/L (3.5-5.1); Protein, Total 6.3 g/dL (5.8-8.1); Sodium 140 mmol/L (136-145)
[2023-09-20 21:21] LABS: Troponin I 0.166 ng/mL (< 0.028)
[2023-09-20] MEDS ORDERED: Acetaminophen 500 MG TAB ONE (23:51)
[2023-09-21 00:18] LABS: HBSAg Index 0.23 S/CO (0-0.99); Hep B Core Total Ab Non-Reactive (NonReactive); Hep B Core Total Index 0.09 S/CO (0-0.79); Hep C IgG Ab Non-Reactive S/CO (NonReactive)
[2023-09-21 02:11] LABS: HBSAB Concentration 11.18 mIU/mL
[2023-09-21 02:12] LABS: Hep B Surf AB Indeterminate (NonReactive); Hep B Surf Ag Non-Reactive S/CO (NonReactive)
[2023-09-21] MEDS ORDERED: Acetaminophen 500 MG TAB ONE (05:10)
[2023-09-21] MEDS ORDERED: Heparin 10,000 UNITS/ 10 ML VIAL ONE (12:04)
== END 2023-09-21 07:15 | disposition home or self-care (01) ==
LOC: ERS 19:59
DX: E87.70 Fluid overload, unspecified (principal); R53.1 Weakness; R06.02 Shortness of breath; I12.0 Hypertensive chronic kidney disease with stage 5 chronic kidney disease or end stage renal disease; N18.6 End stage renal disease; Z99.2 Dependence on renal dialysis; Z87.891 Personal history of nicotine dependence
CPT/HCPCS: 36415; 71045; 80053; 83880; 84484; 85025; 86704; 90935; 93005; G0257; J1644

== ENCOUNTER 2024-05-26 14:40 | Inpatient (IN) | payer MEDICARE ==
[2024-05-26] MEDS ORDERED: Iopamidol-370 76% 500 ML MDV (1 ML CHARGE) ONE (15:03)
[2024-05-26] MEDS ORDERED: methylPREDNISolone Sod Succ/PF 125 MG/2 ML VIAL ONE (16:07)
[2024-05-26 16:18] LABS: #Basophils 0.06 10x3/uL (0.0-0.2); %Basophils 0.9 % (0.0-1.0); %Eosinophils 6.7 % (0.0-10.0); %Lymphocytes 17.6 % (21.0-51.0); %Monocytes 14.1 % (0.0-10.0); %Neutrophils 60.3 % (42.0-75.0); Hematocrit 32.8 % (42.0-52.0); Hemoglobin 10.4 g/dL (14.0-18.0); Mean Corpuscular HGB CONC 31.7 g/dL (32.0-36.0); Mean Corpuscular Hemoglobin 28.5 pg (27.0-31.0); Mean Corpuscular Volume 89.9 fL (78.0-98.0); Mean Platelet Volume 12.6 fL (7.4-10.4); Platelet Count 126 10x3/uL (130-400); RBC Distribution Width 14.4 % (11.5-14.5); Red Blood Cell (RBC) Count 3.65 mill/uL (4.70-6.10)
[2024-05-26 16:33] LABS: ALT (SGPT) 10 U/L (8-55); AST (SGOT) 17 U/L (5-34); Albumin 3.5 g/dL (3.4-4.8); Alkaline Phosphatase 93 U/L (40-110); Anion Gap 19 mmol/L (10-20); BUN (Urea Nitrogen) 32 mg/dL (8.4-25.7); Bilirubin, Total 0.7 mg/dL (0.2-1.2); Calc. Creatinine Clearance 0 mL/min (70-130); Calcium 9.3 mg/dL (7.8-10.44); Carbon Dioxide 26 mmol/L (23-31); Chloride 100 mmol/L (98-107); Estimated GFR 8; Globulin 3.6 g/dL (2.4-3.5); Glucose 90 mg/dL (83-110); Potassium 3.8 mmol/L (3.5-5.1); Protein, Total 7.1 g/dL (5.8-8.1); Sodium 141 mmol/L (136-145)
[2024-05-26 16:36] LABS: Troponin I 0.174 ng/mL (< 0.028)
[2024-05-26 18:35] LABS: Troponin I 0.194 ng/mL (< 0.028)
[2024-05-26] MEDS ORDERED: Aspirin Chewable 81 MG TAB ONE (19:00)
[2024-05-26] MEDS ORDERED: Ipratropium/Albuterol 3 ML NEB NEB PRN (19:28)
[2024-05-26] MEDS ORDERED: Insulin Lispro 100 UNIT/ML 10 ML VIAL SC PRN ×2 (19:50)
[2024-05-26] MEDS ORDERED: Dextrose 50% Abboject 50 ML SYRINGE SLOW IVP PRN (19:50)
[2024-05-26] MEDS ORDERED: Glucagon 1 MG/ML KIT IM PRN (19:50)
[2024-05-26] MEDS ORDERED: Dextrose 5% in Water 1,000 ML IV PRN (19:50)
[2024-05-26] MEDS: Heparin 5,000 UNITS/ML VIAL SC SCH (21:17)
[2024-05-26] MEDS ORDERED: Polyethylene Glycol 3350 17 GM Packet PO PRN (22:12)
[2024-05-26 22:24] LABS: Troponin I 0.152 ng/mL (< 0.028)
[2024-05-26] MEDS ORDERED: guaiFENesin ER 600 MG TAB PO PRN (23:14)
[2024-05-26] MEDS: Ipratropium/Albuterol 3 ML NEB NEB SCH (23:39)
[2024-05-26] MEDS: Carvedilol 6.25 MG TAB PO SCH (23:47)
[2024-05-26] MEDS: Carvedilol 6.25 MG TAB ONE (23:47)
[2024-05-26] MEDS: guaiFENesin ER 600 MG TAB ONE (23:47)
[2024-05-27 01:24] LABS: Influenza A by NAA Not Detected (NotDetected); Influenza B by NAA Not Detected (NotDetected); RSV by NAA Not Detected (NotDetected); SARS-CoV-2 NAA Rapid Test Not Detected (NotDetected)
[2024-05-27 01:34] LABS: Troponin I 0.139 ng/mL (< 0.028)
[2024-05-27 02:13] VITALS: BMI 26.8
[2024-05-27 04:10] LABS: #Basophils Less than 0.03 10x3/uL (0.0-0.2); #Eosinophils Less than 0.03 10x3/uL (0.0-0.7); %Basophils 0.2 % (0.0-1.0); %Lymphocytes 8.3 % (21.0-51.0); %Monocytes 2.3 % (0.0-10.0); Hematocrit 28.6 % (42.0-52.0); Mean Corpuscular HGB CONC 31.5 g/dL (32.0-36.0); Mean Corpuscular Hemoglobin 28.5 pg (27.0-31.0); Mean Corpuscular Volume 90.5 fL (78.0-98.0); Mean Platelet Volume 12.5 fL (7.4-10.4); Platelet Count 132 10x3/uL (130-400); RBC Distribution Width 14.2 % (11.5-14.5); Red Blood Cell (RBC) Count 3.16 mill/uL (4.70-6.10)
[2024-05-27 04:12] LABS: ALT (SGPT) 12 U/L (8-55); AST (SGOT) 20 U/L (5-34); Albumin 3.1 g/dL (3.4-4.8); Alkaline Phosphatase 83 U/L (40-110); Anion Gap 18 mmol/L (10-20); BUN (Urea Nitrogen) 44 mg/dL (8.4-25.7); Bilirubin, Total 0.6 mg/dL (0.2-1.2); Calc. Creatinine Clearance 9 mL/min (70-130); Calcium 8.9 mg/dL (7.8-10.44); Carbon Dioxide 27 mmol/L (23-31); Chloride 99 mmol/L (98-107); Estimated GFR 7; Globulin 3.3 g/dL (2.4-3.5); Glucose 169 mg/dL (83-110); Potassium 3.9 mmol/L (3.5-5.1); Protein, Total 6.4 g/dL (5.8-8.1); Sodium 140 mmol/L (136-145)
[2024-05-27] MEDS: Mometasone 200 MCG/Formoterol 5 MCG 120 PUFF INHALER INH SCH (07:39)
[2024-05-27] MEDS: Aspirin 81 mg Enteric Coated Tablet PO SCH (08:34)
[2024-05-27] MEDS: Carvedilol 6.25 MG TAB PO SCH (08:35)
[2024-05-27] MEDS: Atorvastatin Calcium 40 MG TAB PO SCH (08:35)
[2024-05-27] MEDS: hydrALAZINE 25 MG TAB PO SCH (08:35)
[2024-05-27] MEDS: Gabapentin 100 MG CAP PO SCH (08:35)
[2024-05-27] MEDS: Cholecalciferol 1,000 UNITS (25 MCG) TAB PO SCH (08:35)
[2024-05-27] MEDS ORDERED: Ferric Citrate [Auryxia] 210 MG Tablet PO SCH (09:00)
[2024-05-27 10:31] VITALS: BMI 26.8
[2024-05-27] MEDS ORDERED: Ipratropium/Albuterol 3 ML NEB NEB PRN (11:00)
[2024-05-27] MEDS ORDERED: Azithromycin 250 MG TAB PO SCH (11:45)
[2024-05-27 12:57] LABS: Hemoglobin A1c 4.5 % (4.0-6.0)
[2024-05-27] MEDS: Ipratropium/Albuterol 3 ML NEB NEB SCH (13:33)
[2024-05-28] MEDS: Acetaminophen 325 MG TAB PO PRN (01:27)
[2024-05-28 04:00] LABS: #Basophils 0.03 10x3/uL (0.0-0.2); %Basophils 0.5 % (0.0-1.0); %Eosinophils 4.5 % (0.0-10.0); %Lymphocytes 14.5 % (21.0-51.0); %Monocytes 9.2 % (0.0-10.0); %Neutrophils 70.8 % (42.0-75.0); Hematocrit 29.7 % (42.0-52.0); Hemoglobin 9.2 g/dL (14.0-18.0); Mean Corpuscular Hemoglobin 28.4 pg (27.0-31.0); Mean Corpuscular Volume 91.7 fL (78.0-98.0); Mean Platelet Volume 11.9 fL (7.4-10.4); Platelet Count 146 10x3/uL (130-400); RBC Distribution Width 14.3 % (11.5-14.5); Red Blood Cell (RBC) Count 3.24 mill/uL (4.70-6.10)
[2024-05-28 04:15] LABS: ALT (SGPT) 16 U/L (8-55); AST (SGOT) 22 U/L (5-34); Alkaline Phosphatase 95 U/L (40-110); Anion Gap 17 mmol/L (10-20); BUN (Urea Nitrogen) 30 mg/dL (8.4-25.7); Bilirubin, Total 0.5 mg/dL (0.2-1.2); Calc. Creatinine Clearance 12 mL/min (70-130); Calcium 8.9 mg/dL (7.8-10.44); Carbon Dioxide 27 mmol/L (23-31); Chloride 99 mmol/L (98-107); Estimated GFR 9; Globulin 3.1 g/dL (2.4-3.5); Glucose 109 mg/dL (83-110); Potassium 3.9 mmol/L (3.5-5.1); Protein, Total 6.1 g/dL (5.8-8.1); Sodium 139 mmol/L (136-145)
[2024-05-28 07:57] VITALS: TEMP 98.2
[2024-05-28] MEDS: predniSONE 20 MG TAB PO SCH (08:55)
[2024-05-28 08:56] VITALS: BP 119/56
[2024-05-28] MEDS ORDERED: Azithromycin 250 MG TAB PO SCH (09:00)
== END 2024-05-28 12:28 | disposition home or self-care (01) | DRG 190 ==
LOC: ERS 14:40 → 2SE 18:47 → OBSVTOIN 05-28 11:10
PROVIDERS: ADMIT Emergency Medicine; ATTEND Emergency Medicine
DX: J44.1 Chronic obstructive pulmonary disease with (acute) exacerbation (principal); N18.6 End stage renal disease; I12.0 Hypertensive chronic kidney disease with stage 5 chronic kidney disease or end stage renal disease; G47.33 Obstructive sleep apnea (adult) (pediatric); G89.29 Other chronic pain; M54.9 Dorsalgia, unspecified; F03.90 Unspecified dementia, unspecified severity, without behavioral disturbance, psychotic disturbance, mood disturbance, and anxiety; E11.22 Type 2 diabetes mellitus with diabetic chronic kidney disease; K21.9 Gastro-esophageal reflux disease without esophagitis; D69.6 Thrombocytopenia, unspecified; D63.1 Anemia in chronic kidney disease; R94.31 Abnormal electrocardiogram [ECG] [EKG]; Z99.2 Dependence on renal dialysis; Z88.0 Allergy status to penicillin; Z88.5 Allergy status to narcotic agent; Z91.048 Other nonmedicinal substance allergy status; Z79.82 Long term (current) use of aspirin; Z79.899 Other long term (current) drug therapy; Z79.51 Long term (current) use of inhaled steroids; Z87.891 Personal history of nicotine dependence
CPT/HCPCS: 0241U; 36415; 36416; 71045; 71275; 80053; 83036; 83605; 83880; 84145; 84484; 85025; 87040; 87428; 87633; 93005; 94640; 96372; 96374; G0378; J1644; J2919; J7512; J7620; Q9967

== ENCOUNTER 2024-05-30 02:03 | Emergency (ER) | payer MEDICARE ==
[2024-05-30 02:50] LABS: #Basophils 0.06 10x3/uL (0.0-0.2); %Basophils 0.6 % (0.0-1.0); %Eosinophils 2.1 % (0.0-10.0); %Lymphocytes 12.3 % (21.0-51.0); %Monocytes 10.5 % (0.0-10.0); Hematocrit 34.2 % (42.0-52.0); Hemoglobin 10.1 g/dL (14.0-18.0); Mean Corpuscular HGB CONC 29.5 g/dL (32.0-36.0); Mean Corpuscular Hemoglobin 28.5 pg (27.0-31.0); Mean Corpuscular Volume 96.6 fL (78.0-98.0); Mean Platelet Volume 12.2 fL (7.4-10.4); Platelet Count 180 10x3/uL (130-400); RBC Distribution Width 14.9 % (11.5-14.5); Red Blood Cell (RBC) Count 3.54 mill/uL (4.70-6.10)
[2024-05-30 03:11] LABS: ALT (SGPT) 15 U/L (8-55); AST (SGOT) 19 U/L (5-34); Albumin 3.5 g/dL (3.4-4.8); Alkaline Phosphatase 99 U/L (40-110); Anion Gap 22 mmol/L (10-20); BUN (Urea Nitrogen) 62 mg/dL (8.4-25.7); Bilirubin, Total 0.7 mg/dL (0.2-1.2); Calc. Creatinine Clearance 0 mL/min (70-130); Calcium 9.1 mg/dL (7.8-10.44); Carbon Dioxide 21 mmol/L (23-31); Chloride 102 mmol/L (98-107); Estimated GFR 5; Globulin 3.7 g/dL (2.4-3.5); Glucose 88 mg/dL (83-110); Potassium 4.7 mmol/L (3.5-5.1); Protein, Total 7.2 g/dL (5.8-8.1); Sodium 140 mmol/L (136-145)
[2024-05-30 03:14] LABS: Troponin I 0.125 ng/mL (< 0.028)
[2024-05-30] MEDS ORDERED: Ipratropium/Albuterol 3 ML NEB ONE (03:55)
[2024-05-30 07:07] LABS: Troponin I 0.155 ng/mL (< 0.028)
== END 2024-05-30 05:35 | disposition home or self-care (01) ==
LOC: ERS 02:03
DX: E87.70 Fluid overload, unspecified (principal); J44.9 Chronic obstructive pulmonary disease, unspecified; I12.9 Hypertensive chronic kidney disease with stage 1 through stage 4 chronic kidney disease, or unspecified chronic kidney disease; N18.9 Chronic kidney disease, unspecified; Z99.2 Dependence on renal dialysis; Z55.6 Problems related to health literacy
CPT/HCPCS: 36415; 71045; 80053; 83880; 84484; 85025; 93005; J7620